=== PATIENT | female | born 1990 | race Caucasian/White ===

== ENCOUNTER 2016-10-02 18:51 | Emergency (ER) | payer MEDICAID, OTHER ==
[~2016-10-02] VITALS: Ht 165.1 cm; Wt 54.4 kg
[~2016-10-02 18:51] MED LIST: ACET-2267 PO; AMOX500C2 PO; CLIN300C3 PO; DIPH25TA82 PO; DOCU100C37 PO; FERR-74 PO; FRS325T PO; HYDR-1231 PO; HYDR-3714 PO; HYDR-3812 PO; HYDR-3820 PO; IBP600T1 PO; IBUP-1773 PO; MTH.2T PO; NAUSEA MED; ONDA8TAB13 PO; ONDN4T PO; OXYC-12 PO; PREN1TAB39 PO; PRENATAL VITAMINS PO; PRM25T PO; RT-ALBUINH IH; TRAM-42 PO; TRM50T PO; [UNRECOGNIZED DRUG - REMARK]; cough suppressant
--- NOTE | 2016-10-02 19:02 | ED EENT ---
History of Present Illness General Stated Complaint: DENTAL PAIN Source: patient Exam Limitations: no limitations History of Present Illness Time seen by provider: 19:00 Initial Comments To ER with left upper dental pain for the past week. No fevers or chills. No swelling. She has called the [facility] clinic and they will see her next week she states. Timing/Duration: abrupt Severity: moderate Location: mouth Associated Symptoms: No facial pain/swelling, No fever Allergies and Home Medications Allergies Coded Allergies: No Known Drug Allergies (Unverified , 10/07/10) Home Medications Acetaminophen 500 Mg Tablet 1,000 MG PO Q6H PRN PRN PAIN (Reported) Review of Systems Constitutional: see HPINo chills Eyes: No Symptoms Reported Ears: No Symptoms Reported Nose: no symptoms reported Mouth: see HPIdenies pain, denies swelling Throat: no symptoms reported Respiratory: no symptoms reported Cardiovascular: no symptoms reported Musculoskeletal: no symptoms reported Skin: no symptoms reported Neurological: No Symptoms Reported Past Gunatxj-Jhncgm-Pmfprq Hx Patient Social History Type Used: Cigarettes Recent Foreign Travel: No Contact w/Someone Who Travel: No Recent Hopitalizations: Yes (vag delivery in 2009) Immunizations Up To Date Tetanus Booster (TDap): Less than 5yrs PED Vaccines UTD: No Date of Influenza Vaccine: Jul 12, 2015 Seasonal Allergies Seasonal Allergies: Yes Surgeries HX Surgeries: Yes (D&C, bladder surgery) Surgeries: Bladder Surgery, Ear Surgery Respiratory Hx Respiratory Disorders: No Cardiovascular Hx Cardiac Disorders: No Neurological Hx Neurological Disorders: No Reproductive System Hx Reproductive Disorders: No (states recent cyst dx, 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) Sexually Transmitted Disease: No HIV/AIDS: No Female Reproductive Disorders: Denies Genitourinary Hx Genitourinary Disorders: Yes (BLADDER SURGERY CHILD) Gastrointestinal Hx Gastrointestinal Disorders: No Musculoskeletal Hx Musculoskeletal Disorders: No Endocrine Hx Endocrine Disorders: No HEENT HX ENT Disorders: Yes (BMT) Cancer Hx Cancer: No Psychosocial Hx Psychiatric Problems: No Integumentary HX Skin/Integumentary Disorder: No Blood Transfusions Hx Blood Disorders: Yes Adverse Reaction to a Blood Tr: No Family Medical History Significant Family History: Cancer, Diabetes, Hypertension Family Medial History: Patient reports no known family medical history. Physical Exam General Appearance: WD/WN no apparent distress Eyes: bilateral eye EOMI, bilateral eye PERRL, bilateral eye normal inspection Ears: bilateral ear TM normal, bilateral ear auricle normal, bilateral ear canal normal Mouth/Throat: pharynx normal other (whitish hairy coating to the tongue) Neck: non-tender full range of motion Respiratory: no respiratory distress no accessory muscle use Neurologic/Psychiatric: alert normal mood/affect oriented x 3 Skin: normal color warm/dry Departure Impression Impression: Primary Impression: Dental caries Additional Impression: Thrush Disposition: 01 HOME, SELF-CARE Condition: Stable Departure-Patient Inst. Decision time for Depature: 19:02 Referrals: [facility] (PCP/Family) Primary Care Physician Patient Instructions: Dental Pain, Thrush Add. Discharge Instructions: 1. See your doctor next week 2. Return to ER for any worsening 3. Scripts Ondansetron (Zofran Odt)4 Mg Tab.rapdis4 Mg PO Q4H PRN NAUSEA #10 TAB Prov:YOSELIN RAND APRN 10/02/16 Naproxen (Naprosyn)500 Mg Qexpux049 Mg PO BID PRN PAIN #30 TAB Prov:YOSELIN RAND APRN 10/02/16 Amoxicillin 500 Mg [id number] Mg PO TID #30 CAP Prov:YOSELIN RAND APRN 10/02/16 Fluconazole (Diflucan)150 Mg [id number] Mg PO DAILY #3 TAB Prov:YOSELIN RAND APRN 10/02/16 YOSELIN RAND APRN Oct 02, 2016 19:02
[2016-10-02] MEDS ORDERED: FLUC150T PO (19:04)
[2016-10-02] MEDS ORDERED: AMOX500C2 PO (19:04)
[2016-10-02] MEDS ORDERED: ONDA4TAB8 PO (19:04)
[2016-10-02] MEDS ORDERED: NAPR500T PO (19:04)
[2016-10-02 19:16] VITALS: BP 125/93
== END 2016-10-02 19:16 | disposition home or self-care (01) ==
LOC: EDUNIT# 18:51 → ER 18:52
DX: K02.9 Dental caries, unspecified (principal); B37.0 Candidal stomatitis
CPT/HCPCS: 99282

== ENCOUNTER 2017-05-01 21:19 | Emergency (ER) | payer SELFPAY ==
[~2017-05-01] VITALS: Ht 165.1 cm; Wt 54.5 kg
[~2017-05-01 21:19] MED LIST changes: +FLUC150T PO; +NAPR500T PO; +ONDA4TAB8 PO
--- OUTSIDE RECORDS SUMMARY | 2017-05-01 21:24 | XMS REPORT ---
Author Author ANNA MARINO eClinicalWorks Address Unknown Phone Unavailable Care Team Providers Care Detail Technician Name Role Phone ANNA MARINO CP Unavailable Allergies, Adverse Reactions, Alerts Substance Reaction Event Type N.K.D.A. Info Not Available Non Drug Allergy Problems Problem Type Condition Code Onset Dates Condition Status Problem Counseling on substance use and abuse V65.42 Active Problem Unspecified infective otitis externa 380.10 Active Problem Unspecified otitis media 382.9 Active Problem Intestinal infection due to other organism, NEC 008.8 Active Assessment Encounter for dental examination Z01.20 Active Medications Medication Code System Code Instructions Start Date End Date Status Dosage [facility] [address]-16 27-1 MG Orally not defined Procedures Procedure Coding System Code Date INTRAORL-PERIAPICAL 1 FILM 67566 CPT-4 D0220 May 27, 2015 INTRAORL-PERIAPICAL EA ADD FILM CPT-4 D0230 May 27, 2015 COMP ORAL EVALUATION - NEW/EST PT CPT-4 D0150 May 27, 2015 BITEWINGS - FOUR FILMS CPT-4 D0274 May 27, 2015 INTRAORL-PERIAPICAL EA ADD FILM CPT-4 D0230 May 27, 2015 Vital Signs Date/Time: May 27, 2015 Blood Pressure Diastolic 72 mmHg Blood Pressure Systolic 109 mmHg Cardiac Monitoring Heart Rate 84 bpm Results No Known Results Summary Purpose eClinicalWorks Submission
--- OUTSIDE RECORDS SUMMARY | 2017-05-01 21:25 | XMS REPORT ---
Author Author MOHAMUD VALENTIN [facility] eClinicalWorks Address Unknown Phone Unavailable Care Team Providers Care Boxing Inspector Name Role Phone MOHAMUD VALENTIN CP Unavailable Allergies No Known Allergies Problems Problem Type Condition Code Onset Dates Condition Status Problem Unspecified otitis media 382.9 Active Problem Counseling on substance use and abuse V65.42 Active Problem Severe episode of recurrent major depressive disorder, without psychotic features F33.2 Active Assessment Severe episode of recurrent major depressive disorder, without psychotic features F33.2 Active Problem Unspecified infective otitis externa 380.10 Active Problem Intestinal infection due to other organism, NEC 008.8 Active Medications No Known Medications Procedures Procedure Coding System Code Date Psych diagnostic evaluation, new patient CPT-4 73300 Jun 09, 2016 Results No Known Results Summary Purpose eClinicalWorks Submission
--- OUTSIDE RECORDS SUMMARY | 2017-05-01 21:25 | XMS REPORT ---
Author CODIE Brock [facility] [place] eClinicalWorks Address Unknown Phone Unavailable Care Team Providers Care Master Mechanic Name Role Phone CODIE BEASLEY CP Unavailable Allergies No Known Allergies Problems Problem Type Condition Code Onset Dates Condition Status Problem Counseling on substance use and abuse V65.42 Active Problem Unspecified infective otitis externa 380.10 Active Problem Unspecified otitis media 382.9 Active Problem Intestinal infection due to other organism, NEC 008.8 Active Medications No Known Medications Results No Known Results Summary Purpose eClinicalWorks Submission
--- OUTSIDE RECORDS SUMMARY | 2017-05-01 21:25 | XMS REPORT | Continuity of Care Document ---
Author Author [facility] Address Unknown Phone Unavailable Allergies Active Description Code Type Severity Reaction Onset Reported/Identified Relationship to Patient Clinical Status Yes No Known Drug Allergies [id number] Drug Allergy Unknown N/ A 10/07/2010 Medications Problems Date Dx Coded Attending Type Code Diagnosis Diagnosed By 04/29/2008 APURVA DUMONT APRN 486 PNEUMONIA UNSPECIFIED 04/29/2008 DONIS ESCOBAR APRN R 486 PNEUMONIA UNSPECIFIED 04/29/2008 KAMRAN CORBETTS, OPAL D 486 PNEUMONIA UNSPECIFIED 07/23/2008 APURVA DUMONT APRN 461.9 SINUSITIS ACUTE 07/23/2008 DONIS ESCOBAR APRN R 461.9 SINUSITIS ACUTE 07/23/2008 KAMRAN CORBETTS, OPAL D 461.9 SINUSITIS ACUTE 08/12/2008 APURVA DUMONT APRN 079.99 VIRAL SYNDROME 08/12/2008 DONIS ESCOBAR APRN R 079.99 VIRAL SYNDROME 08/12/2008 WHITE DDS, OPAL D 079.99 VIRAL SYNDROME 10/13/2008 APURVA DUMONT APRN 381.01 OTITIS MEDIA ACUTE SEROUS 10/13/2008 DONIS ESCOBAR APRN R 381.01 OTITIS MEDIA ACUTE SEROUS 10/13/2008 KAMRAN CORBETTS, OPAL D 381.01 OTITIS MEDIA ACUTE SEROUS 10/15/2008 APURVA DUMONT APRN V25.40 visit for: contraceptive surveillance 10/15/2008 APURVA DUMONT APRN V69.2 sexually active, frequently with new partners 10/15/2008 APURVA DUMONT APRN V72.31 Pelvic Exam (Internal) 10/15/2008 APURVA DUMONT APRN V74.5 visit for: screening exam bact/ spirochetal venereal disease 10/15/2008 DONIS ESCOBAR APRN R V25.40 visit for: contraceptive surveillance 10/15/2008 DONIS ESCOBAR APRN V69.2 sexually active, frequently with new partners 10/15/2008 DONIS ESCOBAR APRN R V72.31 Pelvic Exam (Internal) 10/15/2008 DONIS ESCOBAR APRN R V74.5 visit for: screening exam bact/ spirochetal venereal disease 10/15/2008 OPAL ANDREW DDS V25.40 visit for: contraceptive surveillance 10/15/2008 OPAL ANDREW DDS V69.2 sexually active, frequently with new partners 10/15/2008 OPAL ANDREW DDS V72.31 Pelvic Exam (Internal) 10/15/2008 OPAL ANDREW DDS V74.5 visit for: screening exam bact/ spirochetal venereal disease 10/16/2008 APURVA DUMONT APRN V25.49 SURVEILLANCE OF OTHER CONTRACEPTIVE METHOD 10/16/2008 DONIS ESCOBAR APRN R V25.49 SURVEILLANCE OF OTHER CONTRACEPTIVE METHOD 10/16/2008 OPAL ANDREW DDS V25.49 SURVEILLANCE OF OTHER CONTRACEPTIVE METHOD 10/25/2008 APURVA DUMONT APRN 112.1 CANDIDIASIS VAGINAL 10/25/2008 DONIS ESCOBAR APRN R 112.1 CANDIDIASIS VAGINAL 10/25/2008 OPAL ANDREW DDS 112.1 CANDIDIASIS VAGINAL 11/19/2008 APURVA DUMONT APRN 381.10 OTITIS MEDIA SIMPLE OR UNSPECIFIED 11/19/2008 DONIS ESCOBAR APRN R 381.10 OTITIS MEDIA SIMPLE OR UNSPECIFIED 11/19/2008 OPAL ANDREW DDS 381.10 OTITIS MEDIA SIMPLE OR UNSPECIFIED 12/16/2008 APURVA DUMONT APRN 599.0 URINARY TRACT INFECTION 12/16/2008 APURVA DUMONT APRN 788.1 pain during urination (dysuria) 12/16/2008 DONIS ESCOBAR APRN R 599.0 URINARY TRACT INFECTION 12/16/2008 EBONY ESCOBAR APRNINA R 788.1 pain during urination (dysuria) 12/16/2008 OPAL ANDREW DDS 599.0 URINARY TRACT INFECTION 12/16/2008 OPAL ANDREW DDS 788.1 pain during urination (dysuria) 04/05/2009 APURVA DUMONT APRN 787.01 NAUSEA WITH VOMITING 04/05/2009 APURVA DUMONT APRN V22.2 STATE INCIDENTAL 04/05/2009 DONIS ESCOBAR APRN R 787.01 NAUSEA WITH VOMITING 04/05/2009 DONIS ESCOBAR APRN R V22.2 STATE INCIDENTAL 04/05/2009 KAMRAN BRIZUELA, OPAL Pelaez 787.01 NAUSEA WITH VOMITING 04/05/2009 OPAL ANDREW DDS Latanya V22.2 STATE INCIDENTAL 11/16/2009 APURVA DUMONT APRN V65.11 NEW MOMMY VISIT 11/16/2009 DONIS ESCOBAR APRN V65.11 NEW MOMMY VISIT 11/16/2009 KAMRAN BRIZUELA OPAL Pelaez V65.11 NEW MOMMY VISIT 12/02/2009 Ot 285.9 12/02/2009 Ot 648.21 12/02/2009 Ot 649.01 12/02/2009 Ot 792.3 12/02/2009 Ot V06.1 12/02/2009 Ot V23.7 12/02/2009 Ot V27.0 09/10/2010 APURVA DUMONT APRN V72.42 TEST POSITIVE RESULT 09/10/2010 DONIS ESCOBAR APRN V72.42 TEST POSITIVE RESULT 09/10/2010 KAMRAN GELACIOOPAL V72.42 TEST POSITIVE RESULT 10/07/2010 Ot 623.8 10/07/2010 Ot 634.91 05/23/2011 Ot 625.9 05/23/2011 Ot 648.93 06/10/2011 Ot 625.8 06/10/2011 Ot 646.83 10/07/2011 Ot 285.1 10/07/2011 Ot 285.9 10/07/2011 Ot 648.21 10/07/2011 Ot 648.22 10/07/2011 Ot 664.01 10/07/2011 Ot V04.81 10/07/2011 Ot V27.0 11/03/2011 Ot 724.5 11/03/2011 Ot 784.0 11/06/2011 APURVA DUMONT APRN 380.10 INFECTIVE OTITIS EXTERNA UNSPECIFIED 11/06/2011 APURVA DUMONT APRN 382.9 UNSPECIFIED OTITIS MEDIA 11/06/2011 APURVA DUMONT APRN V65.42 COUNSELING - SMOKING CESSATION 11/06/2011 DONIS ESCOBAR APRN 380.10 INFECTIVE OTITIS EXTERNA UNSPECIFIED 11/06/2011 DONIS ESCOBAR APRN 382.9 UNSPECIFIED OTITIS MEDIA 11/06/2011 DONIS ESCOBAR APRN V65.42 COUNSELING - SMOKING CESSATION 11/06/2011 OPAL ANDREW DDS 380.10 INFECTIVE OTITIS EXTERNA UNSPECIFIED 11/06/2011 WHITE DDS, OPAL D 382.9 UNSPECIFIED OTITIS MEDIA 11/06/2011 WHITE DDS, OPAL Pelaez V65.42 COUNSELING - SMOKING CESSATION 02/23/2012 Ot 623.8 02/23/2012 Ot 626.8 07/05/2012 TIM ASSURANCE ASSISTANT, APURVA T 008.8 GASTROENTERITIS, VIRAL 07/05/2012 SHAWN ASSURANCE ASSISTANT, DONIS Casas 008.8 GASTROENTERITIS, VIRAL 07/05/2012 WHITE DDS, OPAL Pelaez 008.8 GASTROENTERITIS, VIRAL 10/07/2013 MORA DO, CLEMENTE C Ot 632 02/13/2014 SILVER ALTAMIRANO, TRACY Baxter Ot 640.03 02/23/2014 LEE CONWAY DO Ot 634.91 07/04/2014 YOSELIN RAND ASSURANCE ASSISTANT Ot V22.2 07/04/2014 YOSELIN RAND ASSURANCE ASSISTANT Ot V71.4 08/01/2014 MITZY SPENCE, MUSTAPHA Pelaez Ot 634.91 02/14/2015 PAUL SPENCE, CURTIS Calabrese Ot 623.8 02/14/2015 PAUL SPENCE, CURTIS Calabrese Ot 640.93 08/03/2015 MORA DO, CLEMENTE C Ot D62 08/03/2015 MORA DO, CLEMENTE C Ot M94.0 08/03/2015 MORA DO, CLEMENTE C Ot O09.293 08/03/2015 MORA DO, CLEMENTE C Ot O60.14X0 08/03/2015 MORA DO, CLEMENTE C Ot O69.81X0 08/03/2015 MORA DO, CLEMENTE C Ot O72.0 08/03/2015 MORA DO, CLEMENTE C Ot O90.81 08/03/2015 MORA DO, CLEMENTE C Ot O99.334 08/03/2015 MORA DO, CLEMENTE C Ot O99.89 08/03/2015 MORA DO, CLEMENTE C Ot Z23 08/03/2015 MORA DO, CLEMENTE C Ot Z37.0 08/03/2015 MORA DO, CLEMENTE C Ot Z3A.37 03/20/2016 AVI SPENCE, KRISTEN Mann Ot K02.9 DENTAL CARIES, UNSPECIFIED 03/20/2016 AVI SPENCE, KRISTEN Mann Ot K08.8 OTHER SPECIFIED DISORDERS OF TEETH AND S 03/20/2016 AVI SPENCE, RKISTEN Mann Ot R11.0 NAUSEA 03/22/2016 AVI SPENCE, KRISTEN Mann Ot K02.9 DENTAL CARIES, UNSPECIFIED 03/22/2016 AVI SPENCE, KRISTEN Mann Ot K08.8 OTHER SPECIFIED DISORDERS OF TEETH AND S 03/22/2016 AVI SPENCE, KRISTEN Mann Ot R11.0 NAUSEA 07/06/2016 YOSELIN RAND APRN Ot K02.9 DENTAL CARIES, UNSPECIFIED 07/06/2016 YOSELIN RAND APRN Ot K08.9 DISORDER OF TEETH AND SUPPORTING STRUCTU 07/07/2016 YOSELIN RAND APRN Ot K02.9 DENTAL CARIES, UNSPECIFIED 07/07/2016 YOSELIN RAND APRN Ot K08.9 DISORDER OF TEETH AND SUPPORTING STRUCTU 10/02/2016 YOSELIN RAND APRN Ot B37.0 CANDIDAL STOMATITIS 10/02/2016 YOSELIN RAND APRN Ot K02.9 DENTAL CARIES, UNSPECIFIED 10/02/2016 YOSELIN RAND APRN Ot K08.9 DISORDER OF TEETH AND SUPPORTING STRUCTU 10/03/2016 YOSELIN RAND APRN Ot B37.0 CANDIDAL STOMATITIS 10/03/2016 YOSELIN RAND APRN Ot K02.9 DENTAL CARIES, UNSPECIFIED 10/03/2016 YOSELIN RAND APRN Ot K08.9 DISORDER OF TEETH AND SUPPORTING STRUCTU Procedures Results Encounters ACCT No. Visit Date/Time Discharge Status Pt. Type Provider Facility Loc./Unit Complaint [id number] 11/20/2013 09:02:00 11/20/2013 23: 59:59 CLS Outpatient OPAL ANDREW DDS [id number] 11/06/2013 08:55:00 11/06/2013 23: 59:59 CLS Outpatient DONIS ESCOBAR APRN [id number] 07/05/2012 11:56:00 07/05/2012 23: 59:59 CLS Outpatient APURVA DUMONT APRN [id number] 10/02/2016 18:52:00 2016 19:16:00 DIS Emergency YOSELIN RAND APRN [facility] ER DENTAL PAIN [id number] 07/06/2016 21:45:00 2015 22:29:00 DIS Emergency YOSELIN RAND ASSURANCE ASSISTANT [facility] ER DENTAL PAIN [id number] 03/20/2016 18:41:00 2015 19:30:00 DIS Emergency AVI SPENCE, KRISTEN Mann [facility] ER DENTAL PAIN [id number] 08/01/2015 07:40:00 2014 13:45:00 DIS Inpatient CLEMENTE MORA DO [facility] [id number] 02/14/2015 08:17:00 2014 10:15:00 DIS Emergency PAUL SPENCE, CURTIS Calabrese [facility] ER [id number] 08/01/2014 14:50:00 2013 17:50:00 DIS Emergency MITZY SPENCE, MUSTAPHA Pelaez [facility] ER [id number] 07/04/2014 21:15:00 2013 22:50:00 DIS Emergency YOSELIN RAND APRN [facility] ER [id number] 02/23/2014 06:46:00 2013 08:37:00 DIS Emergency LEE CONWAY DO [facility] ER [id number] 02/13/2014 17:24:00 2013 23:59:59 CLS Emergency TRACY NEWMAN [facility] ER [id number] 10/07/2013 07:55:00 2013 12:30:00 DIS Outpatient CLEMENTE MORA DO Via [facility] [id number] 02/23/2012 00:38:00 Document Registration [id number] 11/03/2011 20:17:00 Document Registration [id number] 10/06/2011 07:32:00 Document Registration [id number] 06/10/2011 14:45:00 Document Registration [id number] 05/23/2011 17:51:00 Document Registration [id number] 10/07/2010 17:21:00 Document Registration [id number] 11/30/2009 08:23:00 Document Registration
--- OUTSIDE RECORDS SUMMARY | 2017-05-01 21:25 | XMS REPORT ---
Author Author AURELIANO DIOR [facility] eClinicalWorks Address Unknown Phone Unavailable Care Team Providers Care Tube Balancer Name Role Phone AURELIANO DIOR CP Unavailable Allergies, Adverse Reactions, Alerts Substance [...]
--- OUTSIDE RECORDS SUMMARY | 2017-05-01 21:25 | XMS REPORT ---
Author Author APURVA DUMONT Organization eClinicalWorks Address Unknown Phone Unavailable Care Team Providers Care Clinical Trials Manager Name Role Phone APURVA DUMONT CP Unavailable Allergies No Known Allergies Problems Problem Type Condition Code Onset Dates Condition Status Problem Counseling on substance use and abuse V65.42 Active Problem Unspecified infective otitis externa 380.10 Active Problem Unspecified otitis media 382.9 Active Problem Intestinal infection due to other organism, NEC 008.8 Active Medications Medication Code System Code Instructions Start Date End Date Status Dosage Promethazine HCl [facility] [address]-94 25 MG Orally every 6 hrs, PRN May 10, 2016 May 20, 2016 1 tablet as needed Results No Known Results Summary Purpose eClinicalWorks Submission
[2017-05-01] MEDS ORDERED: LIDOCAINE 2% VISCOUS 15 ML UDC ONE (21:44)
[2017-05-01] MEDS ORDERED: AMOX500C2 PO (21:45)
--- NOTE | 2017-05-01 21:45 | ED EENT ---
History of Present Illness General Chief Complaint: Dental Problems/Pain Stated Complaint: TOOTH PAIN Source: patient Exam Limitations: no limitations History of Present Illness Time seen by provider: 21:42 Initial Comments To ER with left upper dental pain for "a long time". She states that she has seen [facility] in the past and they stated that they didn't have time to remove her teeth but they didn't need pulled. She denies any swelling. This is her fourth presentation to the emergency room with this story of left upper dental pain unable to be taken care of at [facility]. She states she is scheduled to see [facility] again next week to have these 2 teeth removed. Severity: moderate Location: dental Associated Symptoms: denies symptoms Allergies and Home Medications Allergies Coded Allergies: No Known Drug Allergies (Unverified , 10/07/10) Home Medications Acetaminophen 500 Mg Tablet, 1,000 MG PO Q6H PRN for PAIN, (Reported) Amoxicillin 500 Mg Capsule, 500 MG PO TID, #30 Prescribed by: YOSELIN RAND on 10/02/161903 Fluconazole 150 Mg Tablet, 150 MG PO DAILY, #3 Prescribed by: YOSELIN RAND on 10/02/161903 Naproxen 500 Mg Tablet, 500 MG PO BID PRN for PAIN, #30 Prescribed by: YOSELIN RAND on 10/02/161903 Ondansetron 4 Mg Tab.rapdis, 4 MG PO Q4H PRN for NAUSEA, #10 Prescribed by: YOSELIN RAND on 10/02/161903 Review of Systems Constitutional: see HPI Eyes: No Symptoms Reported Ears: No Symptoms Reported Nose: no symptoms reported Mouth: see HPI Throat: no symptoms reported Respiratory: no symptoms reported Cardiovascular: no symptoms reported Musculoskeletal: no symptoms reported Past Fzihffd-Ktuhim-Ubrorf Hx Patient Social History Alcohol Use: Occasionally Uses Recreational Drug Use: No Smoking Status: Current Everyday Smoker Type Used: Cigarettes 2nd Hand Smoke Exposure: Yes Recent Foreign Travel: No Contact w/Someone Who Travel: No Recent Hopitalizations: No Physical Abuse: No Sexual Abuse: No Immunizations Up To Date Tetanus Booster (TDap): Less than 5yrs PED Vaccines UTD: No Date of Influenza Vaccine: Jul 12, 2015 Seasonal Allergies Seasonal Allergies: Yes Surgeries History of Surgeries: Yes (D&C, bladder surgery) Surgeries: Bladder Surgery, Ear Surgery Respiratory History of Respiratory Disorde: No Cardiovascular History of Cardiac Disorders: No Neurological History of Neurological Disord: No Reproductive System Hx Reproductive Disorders: No (states recent cyst dx, 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) Sexually Transmitted Disease: No HIV/AIDS: No Female Reproductive Disorders: Denies Genitourinary History of Genitourinary Disor: No Gastrointestinal History of Gastrointestinal Di: No Musculoskeletal History of Musculoskeletal Dis: No Endocrine History of Endocrine Disorders: No HEENT History of HEENT Disorders: No Cancer History of Cancer: No Psychosocial History of Psychiatric Problem: No Suicide Risk Score: 0 Integumentary History of Skin or Integumenta: No Blood Transfusions History of Blood Disorders: No Adverse Reaction to a Blood Tr: No Family Medical History Significant Family History: Cancer, Diabetes, Hypertension Family Medial History: Patient reports no known family medical history. Physical Exam General Appearance: WD/WN, no apparent distress Eyes: bilateral eye normal inspection, bilateral eye PERRL (I felt hot with what), bilateral eye EOMI Ears: bilateral ear auricle normal, bilateral ear canal normal, bilateral ear TM normal Mouth/Throat: dental tenderness, other (multiple dental caries, no fluctuance to suggest abscess. ) Respiratory: no respiratory distress, no accessory muscle use Gastrointestinal: normal bowel sounds, non tender Neurologic/Psychiatric: alert, normal mood/affect, oriented x 3 Skin: normal color, warm/dry Departure Impression Impression: Primary Impression: Dental caries Disposition: 01 HOME, SELF-CARE Condition: Stable Departure-Patient Inst. Decision time for Depature: 21:44 Referrals: [facility] (PCP/Family) Primary Care Physician Patient Instructions: Dental Pain (DC) Add. Discharge Instructions: 1. Medication as directed 2. Follow-up with [facility] next week as scheduled All discharge instructions reviewed with patient and/or family. Voiced understanding. Scripts Amoxicillin (Amoxicillin) 500 Mg Capsule 500 MG PO TID, #21 CAP Prov: YOSELIN RAND SOCIETY EDITOR 05/01/17 YOSELIN RAND SOCIETY EDITOR May 01, 2017 21:45
[2017-05-01 21:59] VITALS: BP 115/73
[2017-05-02] MEDS ORDERED: LIDOCAINE 2% VISCOUS 15 ML UDC PO SCH (06:00)
== END 2017-05-01 21:59 | disposition home or self-care (01) ==
LOC: EDUNIT# 21:19 → ER 21:21
DX: K02.9 Dental caries, unspecified (principal); F17.210 Nicotine dependence, cigarettes, uncomplicated; Z86.19 Personal history of other infectious and parasitic diseases; Z80.9 Family history of malignant neoplasm, unspecified
CPT/HCPCS: 99282

== ENCOUNTER → 2017-10-29 | Outpatient (CLI) | payer MEDICAID ==
[~2017-10-29] MED LIST changes: +ACHD5005 PO; -FERR-74 PO; +FERR325T18 PO; -HYDR-3812 PO; +NAPR-1071 PO; -NAPR500T PO
--- NOTE | 2017-10-29 10:59 | Diagnostic Imaging Report ---
INDICATION: survey. TECHNIQUE: Multiple real-time grayscale images were obtained over the gravid uterus. COMPARISON: None. FINDINGS: There is a single live fetus in a cephalic presentation. The placenta is posterior. No previa is identified. The tip of the placenta is located approximately 2.8 cm from the internal cervical os. The amniotic fluid volume is normal. heart rate was recorded at 135 beats per minute. survey demonstrates kidneys, bladder and stomach to be unremarkable. There is a four-chamber heart. Intracranial structures are unremarkable. There is a three-vessel cord with normal cord insertion. The spine is grossly unremarkable. Biometrical measurements are as follows: Biparietal 4.72 cm, age 20 weeks 2 days. Head circumference 17.72 cm, age 20 weeks 2 days. Abdominal circumference 14.94 cm, age 20 weeks 2 days. Femur length 3.4 cm, age 20 weeks 5 days. Sonographic estimate age: 20 weeks 3 days. Sonographic estimated date of delivery: 03/15/18. Estimated Weight: 350 gm (+/- 51 gm). LMP percentile: 59%. heart rate: 135 beats per minute. number: 1 of 1. IMPRESSION: Single live IUP approximately 20 weeks 3 days gestational age sonographically. Estimated date of confinement sonographically is 03/15/2018. Dictated by: Dictated on workstation # [id number]
== END ==
LOC: RAD 09:45
PROVIDERS: ATTEND Obstetrics & Gynecology
DX: Z36.89 Encounter for other specified antenatal screening (principal); Z3A.20 20 weeks gestation of pregnancy
CPT/HCPCS: 76805

== ENCOUNTER 2017-12-26 10:31 | Outpatient (CLI) | payer MEDICAID ==
[~2017-12-26] VITALS: Ht 165.1 cm; Wt 65.3 kg
[2017-12-26 10:50] VITALS: BP 112/62
[2017-12-26 11:15] LABS: BILIRUBIN,URINE NEGATIVE (NEGATIVE); CLARITY,URINE SLIGHTLY CLOUDY; COLOR,URINE YELLOW; GLUCOSE, URINE (UA) NEGATIVE (NEGATIVE); KETONES,URINE NEGATIVE (NEGATIVE); LEUKOCYTE ESTERASE ,URINE NEGATIVE (NEGATIVE); NITRITE,URINE NEGATIVE (NEGATIVE); PH,URINE 8 (5-9); PROTEIN,URINE NEGATIVE (NEGATIVE); UROBILINOGEN,URINE NORMAL (NORMAL)
[2017-12-26 11:22] LABS: AMORPHOUS SEDIMENT,UR RARE AMOR PHOSPHATE /LPF; BACTERIA,URINE FEW /HPF; WBC,URINE RARE /HPF
[2017-12-26] MEDS ORDERED: NITR-65 PO (12:22)
--- NOTE | 2017-12-27 12:14 | Physician Query-Final Dx ---
JIMENA AARON 12/27/17 1214: Clinic Account Progress/Dx Physician Query: Please give diagnosis Date of Service December 26, 2017 at 10:31 DARIEL COLORADO MD 12/28/17 0743: Clinic Account Progress/Dx DIAGNOSIS: Diagnosis false labor JIMENA AARON December 27, 2017 12:14 DARIEL COLORADO MD December 28, 2017 07:43
== END 2017-12-26 12:30 | disposition home or self-care (01) ==
LOC: LDRP 10:31 → WSo 10:31
PROVIDERS: ATTEND Obstetrics & Gynecology
DX: O47.03 False labor before 37 completed weeks of gestation, third trimester (principal); Z3A.28 28 weeks gestation of pregnancy
CPT/HCPCS: 81000; 87088; 99213

== ENCOUNTER 2019-04-03 21:41 | Emergency (ER) | payer SELFPAY ==
[~2019-04-03] VITALS: Ht 165.1 cm; Wt 59.0 kg
[~2019-04-03 21:41] MED LIST changes: +IBUP-844 PO; +NITR-65 PO
[2019-04-03] MEDS ORDERED: AMOX500C2 PO (22:11)
--- NOTE | 2019-04-03 22:11 | ED EENT ---
History of Present Illness General Chief Complaint: Dental Problems/Pain Stated Complaint: DENTAL PAIN Nursing Triage Note: pt verbalized x1 week dental pain. left upper. states now odor, facial swelling, tired. Source: patient Exam Limitations: no limitations History of Present Illness Date Seen by Provider: Apr 03, 2019 Time Seen by Provider: 21:58 Initial Comments This 28-year-old young lady presents to the emergency room with complaints of facial pain and swelling she believes is caused by a dental decay. Pain first started in the upper right bowel about a week ago. Now the left upper mouth is sore and she has swelling over the left maxilla. She does not feel well but denies fever. She reports there is odor associated with the swelling. She feels fatigued. She is afebrile at present. She did contact her dentist who instructed her she would need to be seen by a physician to be started on antibiotics before she can be seen for possible extractions. Allergies and Home Medications Allergies Coded Allergies: No Known Drug Allergies (Unverified , 10/07/10) Home Medications Acetaminophen 500 Mg Tablet, 1,000 MG PO Q6H PRN for PAIN Prescribed by: CLEMENTE MORA on 03/07/18244 Amoxicillin 500 Mg Capsule, 1,000 MG PO BID Prescribed by: KRISTEN PATEL on 04/03/192210 Ferrous Sulfate 325 Mg Tablet, 325 MG PO DAILY Prescribed by: CLEMENTE MORA on 03/07/18244 Ibuprofen 600 Mg Tablet, 600 MG PO Q6H Prescribed by: CLEMENTE MORA on 03/07/18244 Patient Home Medication List Home Medication List Reviewed: Yes Review of Systems Review of Systems Constitutional: see HPI Eyes: No Symptoms Reported Ears: No Symptoms Reported Nose: no symptoms reported Mouth: see HPI Throat: no symptoms reported Respiratory: no symptoms reported Cardiovascular: no symptoms reported Gastrointestinal: no symptoms reported : No Musculoskeletal: no symptoms reported Skin: no symptoms reported Neurological: No Symptoms Reported Hematologic/Lymphatic: No Symptoms Reported Past Pzibhmj-Zrzmfj-Mglumo Hx Past Med/Social Hx: Reviewed and Corrections made Patient Social History Type Used: Cigarettes 2nd Hand Smoke Exposure: Yes Recent Foreign Travel: No Contact w/Someone Who Travel: No Recent Infectious Disease Expo: No Recent Hopitalizations: No Immunizations Up To Date Tetanus Booster (TDap): Less than 5yrs PED Vaccines UTD: Yes Date of Influenza Vaccine: Jul 12, 2015 Seasonal Allergies Seasonal Allergies: Yes (summer) Past Medical History Surgeries: Yes Bladder Surgery, Ear Surgery, Tubal Ligation Respiratory: No Cardiac: No Neurological: No Reproductive Disorders: No (states recent cyst dx, 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 0.0oz. 58.175583oe; 24.5 BMI Method:Stated General Appearance: WD/WN, no apparent distress Eyes: bilateral eye normal inspection, bilateral eye PERRL, bilateral eye EOMI Ears: bilateral ear auricle normal, bilateral ear canal normal, bilateral ear TM normal Nose: normal inspection Mouth/Throat: pharynx normal, other (very poor dentition with extensive dental decay. Mild inflammation with no overt abscess. Tenderness superior to the left canine area. 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 Departure Impression Primary Impression: Dental abscess Additional Impression: Dental decay Disposition: 01 HOME, SELF-CARE Condition: Improved Departure-Patient Inst. Decision time for Depature: 22:07 Referrals: [facility]/ (PCP/Family) Primary Care Physician Patient Instructions: Tooth Decay, Adult (DC), Tooth Abscess (DC) Add. Discharge Instructions: For primary pain control you may take ibuprofen up to 600 mg every 6 hours as needed. You may add Tylenol (acetaminophen) up to 1000 mg every 6 hours as needed for additional pain relief. Gently brush your teeth at least twice daily with a soft bristle toothbrush. You may also rinse with an antiseptic mouthwash such as Listerine if tolerated. Follow-up with a dentist as soon as possible for further evaluation and possible dental extractions. Complete your antibiotic as prescribed. For sinus pressure you may choose to use an gulp-xfx-hgqvfhj decongestant. Be careful to evaluate active ingredients of combination medications to ensure you are not overdosing on any particular component. All discharge instructions reviewed with patient and/or family. Voiced understanding. Scripts Amoxicillin (Amoxicillin) 500 Mg Capsule 1000 MG PO BID, #40 CAP 0 Refills Prov: KRISTEN CÁRDENAS MD 04/03/19 KRISTEN CÁRDENAS MD Apr 03, 2019 22:11
[2019-04-03] MEDS: AMOXICILLIN 500 MG (POLYMOX) CAP PO STA (22:15)
[2019-04-03 22:17] VITALS: BP 129/88
== END 2019-04-03 22:18 | disposition home or self-care (01) ==
LOC: EDUNIT# 21:41 → ER 21:42
DX: K04.7 Periapical abscess without sinus (principal); K02.9 Dental caries, unspecified; D64.9 Anemia, unspecified; Z77.22 Contact with and (suspected) exposure to environmental tobacco smoke (acute) (chronic); Z98.51 Tubal ligation status; Z82.49 Family history of ischemic heart disease and other diseases of the circulatory system
CPT/HCPCS: 99283

== ENCOUNTER 2019-08-31 11:14 | Emergency (ER) | payer SELFPAY ==
[~2019-08-31] VITALS: Ht 165 cm; Wt 59.0 kg
--- NOTE | 2019-08-31 11:28 | ED EENT ---
History of Present Illness General Chief Complaint: Dental Problems/Pain Stated Complaint: DENTAL PAIN Nursing Triage Note: c/o L upper dental pain and facial swelling Source: patient Exam Limitations: no limitations History of Present Illness Date Seen by Provider: Aug 31, 2019 Time Seen by Provider: 11:28 Initial Comments Pain and swelling to the left maxillary region 2 days. Timing/Duration: gradual Severity: moderate Location: facial Associated Symptoms: facial pain/swelling Allergies and Home Medications Allergies Coded Allergies: No Known Drug Allergies (Unverified , 10/07/10) Home Medications Acetaminophen 500 Mg Tablet, 1,000 MG PO Q6H PRN for PAIN Prescribed by: CLEMENTE MORA on 03/07/18244 Amoxicillin 500 Mg Capsule, 1,000 MG PO BID Prescribed by: KRISTEN PATEL on 04/03/19 2211 Clindamycin HCl 300 Mg Capsule, 300 MG PO TID Prescribed by: YOSELIN RAND on 08/31/19 1246 Ferrous Sulfate 325 Mg Tablet, 325 MG PO DAILY Prescribed by: CLEMENTE MORA on 03/07/18244 Hydrocodone/Acetaminophen 1 Each Tablet, 1 TAB PO Q4-6HR do not fill unless clindamycin is also filled. Prescribed by: YOSELIN RAND on 08/31/19 1247 Ibuprofen 600 Mg Tablet, 600 MG PO Q6H Prescribed by: CLEMENTE MORA on 03/07/18244 Patient Home Medication List Home Medication List Reviewed: Yes Review of Systems Review of Systems Constitutional: see HPI Eyes: No Symptoms Reported Ears: No Symptoms Reported Nose: no symptoms reported Mouth: see HPI Throat: no symptoms reported Respiratory: no symptoms reported Cardiovascular: no symptoms reported Gastrointestinal: no symptoms reported Past Djpuzlg-Ogwlge-Tibjhi Hx Patient Social History Alcohol Use: Denies Use Recreational Drug Use: No Smoking Status: Current Everyday Smoker Type Used: Cigarettes 2nd Hand Smoke Exposure: Yes Recent Foreign Travel: No Contact w/Someone Who Travel: No Recent Infectious Disease Expo: No Recent Hopitalizations: No Immunizations Up To Date Tetanus Booster (TDap): Less than 5yrs PED Vaccines UTD: Yes Date of Influenza Vaccine: Jul 12, 2015 Seasonal Allergies Seasonal Allergies: Yes (summer) Past Medical History Surgeries: Yes Bladder Surgery, Ear Surgery, Tubal Ligation Respiratory: No Cardiac: No Neurological: No Reproductive Disorders: No (states recent cyst dx, 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 0.0oz. 58.369851ik; 21.00 BMI Method:Stated General Appearance: WD/WN, no apparent distress Eyes: bilateral eye normal inspection, bilateral eye PERRL, bilateral eye EOMI Ears: bilateral ear auricle normal, bilateral ear canal normal, bilateral ear TM normal Mouth/Throat: maxillary swelling (left sided), other (multiple teeth in poor state of health with caries, fractures and gingivitis. Tooth #11 to be the source of this as it is eroded carious and tender but there is no palpable fluctuant abscess) Neck: non-tender, full range of motion; No lymphadenopathy (R), No lymphadenopathy (L) Cardiovascular: regular rate, rhythm, no murmur Respiratory: no respiratory distress, no accessory muscle use Neurologic/Psychiatric: alert, normal mood/affect, oriented x 3 Skin: normal color, warm/dry Progress/Results/Core Measures Results/Orders Lab Results Laboratory Tests Test 08/31/19 11:40 Range/Units White Blood Count 8.6 4.3-11.0 10^3/uL Red Blood Count 4.46 4.35-5.85 10^6/uL Hemoglobin 12.1 11.5-16.0 G/DL Hematocrit 37 35-52 % Mean Corpuscular Volume 83 80-99 FL Mean Corpuscular Hemoglobin 27 25-34 PG Mean Corpuscular Hemoglobin Concent 33 32-36 G/DL Red Cell Distribution Width 16.3 H 10.0-14.5 % Platelet Count 336 130-400 10^3/uL Mean Platelet Volume 9.6 7.4-10.4 FL Neutrophils (%) (Auto) 69 42-75 % Lymphocytes (%) (Auto) 22 12-44 % Monocytes (%) (Auto) 8 0-12 % Eosinophils (%) (Auto) 2 0-10 % Basophils (%) (Auto) 0 0-10 % Neutrophils # (Auto) 5.9 1.8-7.8 X 10^3 Lymphocytes # (Auto) 1.9 1.0-4.0 X 10^3 Monocytes # (Auto) 0.7 0.0-1.0 X 10^3 Eosinophils # (Auto) 0.1 0.0-0.3 10^3/uL Basophils # (Auto) 0.0 0.0-0.1 10^3/uL C-Reactive Protein High Sensitivity 3.04 H 0.00-0.50 MG/DL Serum Test, Qualitative NEGATIVE NEGATIVE My Orders Orders - YOSELIN RAND APRN Cbc With Automated Diff (08/31/19 11:22) Hs C Reactive Protein (08/31/19 11:22) Hcg,Qualitative Serum (08/31/19 11:22) Ed Iv/Invasive Line Start (08/31/19 11:22) Clindamycin 900 Mg/50 Ml Ivpb (Cleocin P (08/31/19 11:30) Ketorolac Injection (Toradol Injection) (08/31/19 11:30) Ct Maxillofacial W (08/31/19 11:22) Urine Bedside (08/31/19 11:34) Iohexol Injection (Omnipaque 350 Mg/Ml 1 (08/31/19 12:15) Received Contrast (Hold Metformin- Contr (08/31/19 12:15) Ns (Ivpb) (Sodium Chloride 0.9% Ivpb Bag (08/31/19 12:15) Medications Given in ED Current Medications Medications Dose Ordered Sig/Alfred Route Start Time Stop Time Status Last Admin Dose Admin Clindamycin Phosphate/Dextrose 50 ml @ 100 mls/hr ONCE ONCE IV 08/31/19 11:30 08/31/19 11:59 DC 08/31/19 11:44 100 MLS/HR Iohexol 75 ml ONCE ONCE IV 08/31/19 12:15 08/31/19 12:16 DC 08/31/19 12:59 75 ML Ketorolac Tromethamine 15 mg ONCE ONCE IVP 08/31/19 11:30 08/31/19 11:31 DC 08/31/19 11:44 15 MG Sodium Chloride 100 ml ONCE ONCE IV 08/31/19 12:15 08/31/19 12:16 DC 08/31/19 12:59 80 ML Vital Signs/I&O 08/31/19 11:24 Temp 37.3 Pulse 97 Resp 18 B/P (MAP) 120/81 (94) Pulse Ox 97 Blood Pressure Mean: 94 Diagnostic Imaging Diagonstic Imaging: CT Comments NAME: KRIS POWELL [facility] REC#: [id number] PT STATUS: REG ER : 1990 PHYSICIAN: YOSELIN RAND PHYSICIAN GYNECOLOGIST ADMIT DATE: 08/31/19/ER Draft Date of Exam:08/31/19 CT MAXILLOFACIAL W PROCEDURE: CT maxillofacial with contrast. TECHNIQUE: After intravenous administration of contrast, axial images were obtained through the face and reformatted into coronal and sagittal planes. Auto Exposure Controls were utilized during the CT exam to meet ALARA standards for radiation dose reduction. INDICATION: Left upper dental pain and facial swelling. COMPARISON: None FINDINGS: The pterygoid plates are intact. The mandible is intact and normal in alignment. The zygomatic arches are intact. No acute facial fracture is seen. There is marked mucosal thickening in the left maxillary sinus, extending into the ethmoid sinuses. There is a periapical lucency of the left maxillary second molar, and likely the source of the left maxillary sinusitis. There is moderate edema of the subcutaneous fat of the left cheek. No soft tissue fluid collection is seen. IMPRESSION: 1. Left maxillary sinusitis, which appears to be odontogenic from a left maxillary second molar abscess. There is overlying superficial soft tissue edema without fluid collection seen. Dictated on workstation # [id number] Dict: 08/31/19 1225 Trans: 08/31/19 1231 [facility] [id number] Interpreted by: HANSA RUIZ MD Electronically signed by: Departure Impression Primary Impression: Odonogenic maxillary sinusitis Additional Impressions: Odontogenic infection of jaw left molar abscess Disposition: HOME, SELF-CARE Condition: Stable Departure-Patient Inst. Decision time for Depature: 12:44 Referrals: [facility] (PCP/Family) Primary Care Physician Patient Instructions: Tooth Abscess (DC) Add. Discharge Instructions: 1. Return to ER for any concerns 2. Antibiotics as directed 3. Follow-up with a dentist as soon as possible. If you do not have a dentist then go to [facility] dental clinic on [address] [place] All discharge instructions reviewed with patient and/or family. Voiced understanding. Scripts Ondansetron (Ondansetron Odt) 8 Mg Tab.rapdis 8 MG PO Q6H PRN for NAUSEA/VOMITING, #10 TAB Prov: YOSELIN RAND APRN 08/31/19 Hydrocodone/Acetaminophen (Ovalo 5-325 Tablet) 1 Each Tablet 1 TAB PO Q4-6HR for Pain MDD 10 TABS for 7 Days, #10 TAB do not fill unless clindamycin is also filled. Prov: YOSELIN RAND APRN 08/31/19 Clindamycin HCl (Clindamycin HCl) 300 Mg Capsule 300 MG PO TID, #21 CAP Prov: YOSELIN RAND APRN 08/31/19 YOSELIN RAND APRN Aug 31, 2019 11:28
[2019-08-31] MEDS ORDERED: KETOROLAC 30 MG/ML VIAL IVP ONE (11:30)
[2019-08-31] MEDS ORDERED: CLINDAMYCIN 900 MG/50 ML IVPB 50 ML IV ONE (11:30)
[2019-08-31 11:49] LABS: BASOPHILS % (AUTO) 0 % (0-10); EOSINOPHILS # (AUTO) 0.1 10^3/uL (0.0-0.3); EOSINOPHILS % (AUTO) 2 % (0-10); HEMATOCRIT 37 % (35-52); HEMOGLOBIN 12.1 G/DL (11.5-16.0); LYMPHOCYTES # (AUTO) 1.9 X 10^3 (1.0-4.0); LYMPHOCYTES % (AUTO) 22 % (12-44); MEAN CORPUSCULAR HEMOGLOBIN 27 PG (25-34); MEAN CORPUSCULAR HGB CONC 33 G/DL (32-36); MEAN CORPUSCULAR VOLUME 83 FL (80-99); MEAN PLATELET VOLUME 9.6 FL (7.4-10.4); MONOCYTES # (AUTO) 0.7 X 10^3 (0.0-1.0); MONOCYTES % (AUTO) 8 % (0-12); NEUTROPHILS # (AUTO) 5.9 X 10^3 (1.8-7.8); NEUTROPHILS % (AUTO) 69 % (42-75); PLATELET COUNT 336 10^3/uL (130-400); RED CELL DISTRIBUTION WIDTH 16.3 % (10.0-14.5); WHITE BLOOD COUNT 8.6 10^3/uL (4.3-11.0)
[2019-08-31] MEDS ORDERED: HOLD METFORMIN - RECEIVED CONTRAST 20 ML VIAL IV SCH (12:15)
[2019-08-31] MEDS ORDERED: IOHEXOL 350 MG/ML 100 ML (OMNIPAQUE 350) VIAL IV ONE (12:15)
[2019-08-31] MEDS ORDERED: NS 100 ML (IVPB) BAG IV ONE (12:15)
--- NOTE | 2019-08-31 12:32 | Diagnostic Imaging Report ---
PROCEDURE: CT maxillofacial with contrast. TECHNIQUE: After intravenous administration of contrast, axial images were obtained through the face and reformatted into coronal and sagittal planes. Auto Exposure Controls were utilized during the CT exam to meet ALARA standards for radiation dose reduction. INDICATION: Left upper dental pain and facial swelling. COMPARISON: None FINDINGS: The pterygoid plates are intact. The mandible is intact and normal in alignment. The zygomatic arches are intact. No acute facial fracture is seen. There is marked mucosal thickening in the left maxillary sinus, extending into the ethmoid sinuses. There is a periapical lucency of the left maxillary second molar, and likely the source of the left maxillary sinusitis. There is moderate edema of the subcutaneous fat of the left cheek. No soft tissue fluid collection is seen. IMPRESSION: 1. Left maxillary sinusitis, which appears to be odontogenic from a left maxillary second molar abscess. There is overlying superficial soft tissue edema without fluid collection seen. Dictated by: Dictated on workstation # [id number]
[2019-08-31] MEDS ORDERED: CLIN300C11 PO (12:46)
[2019-08-31] MEDS ORDERED: HYDR-4226 PO (12:47)
[2019-08-31 13:03] VITALS: BP 120/81
[2019-08-31] MEDS ORDERED: ONDA8TAB13 PO (13:03)
== END 2019-08-31 13:03 | disposition home or self-care (01) ==
LOC: EDUNIT# 11:14 → ER 11:15
DX: J32.0 Chronic maxillary sinusitis (principal); M27.2 Inflammatory conditions of jaws; K04.7 Periapical abscess without sinus; D64.9 Anemia, unspecified; F17.210 Nicotine dependence, cigarettes, uncomplicated; Z98.51 Tubal ligation status; Z82.49 Family history of ischemic heart disease and other diseases of the circulatory system
CPT/HCPCS: 36415; 70487; 84703; 85025; 86141

== ENCOUNTER 2019-12-30 08:15 | Emergency (ER) | payer SELFPAY ==
[~2019-12-30] VITALS: Ht 165 cm; Wt 65.1 kg
[~2019-12-30 08:15] MED LIST changes: +ACHYD1T PO; +CLIN300C11 PO; -HYDR-3820 PO; +HYDR-4226 PO
--- OUTSIDE RECORDS SUMMARY | 2019-12-30 08:40 | XMS REPORT ---
Author Author Stephon Alaniz A Organization [facility] Address [address] [place] [address] Care Team Providers Care Filter Bed Placer Name Role Phone DONIS Alaniz Unavailable PROBLEMS Type Condition ICD9-CM Code ALU73-ND Code Onset Dates Condition S tatus SNOMED Code Problem Intestinal infection due to other organism, NEC 008.8 Active 03008704 Problem Severe episode of recurrent major depressive disorder, without psychotic features F33.2 Active 33997119 Problem Counseling on substance use and abuse V65.42 Active 972005526 Problem Unspecified otitis media 382.9 Activ e 14484122 Problem Unspecified infective otitis externa 380.10 Active 60351202 ALLERGIES No Information ENCOUNTERS Encounter Location Date Diagnosis [facility] [address] [id number] [place] [address] 30 Mar, 2019 Screen for STD (sexually transmitted dis ease) Z11.3 [facility] [address] [place] [id number] [address] [place] [id number] 15 Mar, 2019 [facility] [place] [id number] [address] [place] [id number] 14 Mar, 2019 Screen for STD (sexually tra nsmitted disease) Z11.3 ; Other specified bacterial agents as the cause of diseases classified elsewhere B96.89 ; Acute vaginitis N76.0 and Trichomonal infection A59.9 [facility] [address] [facility] [place] [id number] 12 Feb, 2018 Dental examination Z01.20 and Dental car ies K02.9 [facility] [address] [facility] [id number] [address] [place] [id number] 18 Nov, 2017 Cellulitis of right foot L03 .115 and Bronchitis J40 [facility] [address] [id number] Jan, Dental examination Z01.20 [facility] [address] [address] Jun, [facility] [address] [address] Jun, Severe episode of recurrent major depres sive disorder, without psychotic features F33.2 [facility] [address] [facility] [id number] [place] [address] May, [facility] [address] [address] May, Dental examination Z01.20 [facility] [address] [id number] Mar, Dental examination Z01.20 and Dental car ies K02.9 [facility] [address] [address] Nov, [facility] [address] [id number] May, Encounter for dental examination Z01.20 [facility] [address] [address] 14 Nov, 2014 [facility] [address] [address] Nov, [facility] [address] [id number] Nov, [facility] [address] [address] Nov, [facility] [address] [address] Nov, [facility] [address] [address] Nov, [facility] [address] [address] Jun, [facility] [address] [id number] [place] [address] Jun, [facility] [address] [facility] [place] [address] Jun, [facility] [address] [id number] [place] [address] Jun, [facility] [id number] [place] [address] Nov, [facility] [id number] [place] [address] Nov, [facility] [id number] [place] [address] December, [facility] [id number] [place] [address] Nov, [facility] [address] [id number] [place] [address] Oct, [facility] [id number] [place] [address] Oct, IMMUNIZATIONS No Known Immunizations SOCIAL HISTORY Never Assessed REASON FOR VISIT PLAN OF CARE VITAL SIGNS Height 64 in 2013-11-06 Weight 133.25 lbs 2013-11-06 Temperature 97.5 degrees Fahrenheit 2013-11-06 Heart Rate 80 bpm 2013-11-06 Respiratory Rate 18 2013-11-06 MEDICATIONS Unknown Medications RESULTS No Results PROCEDURES No Known procedures INSTRUCTIONS MEDICATIONS ADMINISTERED No Known Medications MEDICAL (GENERAL) HISTORY Type Description Date Medical History anemia Medical History chronic ear infections Surgical History myringotomy with ventilating tube x4 as child Surgical History bladder surgery for incontinence as chil d Surgical History dilatation and curettage s/p miscarriage () 10/2013 Hospitalization History child
--- OUTSIDE RECORDS SUMMARY | 2019-12-30 08:40 | XMS REPORT ---
Author Author CoPatient communications advisor [facility] [employer] Address [address] [address] Care Team Providers Care Food Expeditor Name Role Phone NO, LOCAL PHYSICIAN Unavailable Unavailable APURVA DUMONT Unavailable Unavailable MOHAMUD VALENTIN Unavailable Unavailable AURELIANO DIOR Unavailable Unavailable [facility] Unavailable ANNA MARINO Unavailable Unavailable CODIE BEASLEY Unavailable Unavailable CLEMENTE MORA Unavailable CLEMENTE MORA Unavailable [facility] Unavailable MORGAN CLEMENTE C Unavailable GREGORY CROWE Unavailable YOSELIN RAND APRN Unavailable Unavailable LEE CONWAY DO Unavailable Unavailable Migration, Doctor Unavailable Unavailable APURVA DUMONT Unavailable [facility] PCP [phone] PCP, OUTSIDE Unavailable Unavailable AVI SPENCE, KRISTEN Mann Unavailable Unavailable MUSTAPHA FORRESTER MD Unavailable Unavailable YOSELIN RAND APRN Unavailable Unavailable [facility] PCP DONIS Alaniz Unavailable Unavailable Unavailable Unavailable Unavailable Unavailable Unavailable Unavailable Unavailable Allergies Normalized Allergy Reported Date of Reaction(s) Care Provider Facility Allergy Type classification allergen Allergy Onset DA (9 Unclassified No Known Drug 10-07-2010 - no information LEE CONWAY DO Not Available sources.) Allergies (99412) no information Unclassified NO KNOWN DRUG NO KNOWN DRUG [facility] (3 sources.) ALLERGIES ALLERGIES [address] ([address]) Medications Current Medications Medication Ingredient Drug Dose Dates Status Sig Sig Care Class(es) (Normalized) (Original) Provid er no A/B Otic no 1 11-06-19 Active no A/B Otic n o information 5.4-1.4 % information drop(s 12 information 5.4-1 .4 % name (1 source.) ) instill into affected ear(s) by otic route every 1-2 hours as needed enough drops to fill ear canal Nov, Active amoxicillin Amoxicillin Penicillin- 11-06-19 Active take 1 Augme ntin no 875 mg / / class 12 tablet by 875-125 mg 1 name clavulanate Clavulanate Antibacteri mouth twice tablet by 125 mg oral Translation al daily Oral route 2 tablet (1 s: [ times per source.) Augmentin day for 10 875-125 mg] day(s) Nov, Active no Ciprofloxac Corticoster 3 11-06-19 Active no Cip rodex no information in / oid, drop(s 12 information 0.3-0.1 % 3 name (1 source.) Dexamethaso Quinolone ) drop by Otic ne Antimicrobi route 2 al times per day for 7 day(s) Nov, Active Completed/Discontinued Medications Medication Ingredient Drug Dose Dates Status Sig Sig Care Class(es) (Normalized) (Original) Provid er no Cough no 07-06-20 Complete no Cough no information Suppressant information 16 d information Shay ppressant name (1 source.) Discontinued NOT APPLICABLE July 06, 2016 no Hydrocodone no 02-14-20 Complete no Hydrocodone n o information Bit/Acetami information 14 - d information Bi t/Acetamin name (1 source.) cryshen 07-04-20 ophen 14 Discontinued 1 ORAL Every 4HRS as needed for Pain February 13, 2014 7:44pm July 04, 2014 no Nausea Med no 10-06-19 Complete no Nausea Med no information information 12 d information Disconti nued name (1 source.) NOT APPLICABLE October 06, 2011 no Nausea Pill no 07-06-20 Complete no Nausea Pill n o information information 16 d information Disconti nued name (1 source.) NOT APPLICABLE July 06, 2016 nitrofurant NITROFURANT Nitrofuran 25 mg 12-27-19 Complete no Nitrofuranto no oin, OIN, Antibacteri 18 - d information in name macrocrysta MACROCRYSTA al 03-06-20 Monohyd/M-Cr ls 25 mg / LS / 18 yst nitrofurant Nitrofurant Discontinued oin, oin, 1 ORAL Twice monohydrate Monohydrate A Day 10 December 75 mg oral 2017 capsule (2 12:22pm sources.) March 06, 2018 no no 07-06-20 Complete no no information Vitamins information 16 d information Vitam ins name (1 source.) Discontinued 1 ORAL Daily July 06, 2016 no no 10-06-19 Complete no no information Vits information 12 d information Vits name (1 source.) W-Ca,Fe,Fa( W-Ca,Fe,Fa( <1MG) Discontinued 1 ORAL October 06, 2011 no no 10-06-19 Complete no (no information Vits information 12 d information Vits phone) (2 W-Ca,Fe,Fa( W-Ca,Fe,Fa( sources.) <1MG) Discontinued () 1 Each Tablet, 1 Each Oral NEGATED no no 04-30-20 no no no no no information information 18 - informat information infor mation name information 04-30-20 ion (1 source.) 18 NEGATED no no 1 g 04-30-20 no no no no no information information 18 - informat information infor mation name information 04-30-20 ion (1 source.) 18 NEGATED no no 04-30-20 no no no no no information information 18 - informat information infor mation name information 04-30-20 ion (1 source.) 18 NEGATED no no 04-30-20 no no no no no information information 18 - informat information infor mation name information 05-07-20 ion (1 source.) 18 Problems Active Problems Problem Normalized Date Last Normalized Normalized Provider Fa cility Classification Problem(s) Recorded Problem Problem Sta tus Duration Inflammatory Acute Episodic Active DONIS Community diseases of vaginitis [facility] female pelvic Translations: [address] of [place] organs (1 [ - Acute [place] ([address]) source.) vaginitis N76.0] NEGATED Anemia of Chronic Active CORNEL NUVIA Not Avai lable no mother, MD (94207) information (1 delivered, source.) with or without mention of antepartum condition Other Anemia of the Chronic Active CLEMENTE MORA , Not Available complications puerperium DO (09695) of ; puerperium affecting management of mother (1 source.) Deficiency and Anemia, Episodic Active [facility] Via other anemia unspecified Liv CÁRDENAS (6 sources.) [facility] ([address]11) Abdominal Bilateral Episodic Active [facility] hernia (6 inguinal [facility] #1 of sources.) hernia, Transfer without County ([address]) obstruction or gangrene, not specified as recurrent Translations: [ BILATERAL INGUINAL HERNIA, WITHOUT MENTION OF OBSTRUCTION OR GANGRENE (NOT SPECIFIED RECURRENT)] Residual Contact with Episodic Active [facility] Via codes; and Liv CÁRDENAS unclassified (suspected) [facility] - (6 sources.) exposure to [place] environmental (33165) tobacco smoke (acute) (chronic) NEGATED Encounter for Episodic Active no name [facility] Via no full-term Liv information (6 uncomplicated Hospital - sources.) delivery [place] Translations: (93840) [ SINGLE LIVE , DELIVER-SINGLE LIVEBORN, PREG STATE, INCIDENTAL] Contraceptive Encounter for Episodic Active [facility] spital and sterilization [facility] #1 o f procreative Translations: Transfer management (10 [ ENCOUNTER County ([address]) sources.) FOR STERILIZATION, TUBAL LIGATION STATUS] Residual Family history Episodic Active [facility] Via codes; of ischemic Liv CÁRDENAS unclassified heart disease [facility] - (6 sources.) and other [place] diseases of (67258) the circulatory system Other ear and Infective Episodic Active Doctor Communit y sense organ otitis externa [facility] r disorders (2 Translations: of [facility] sources.) [ Unspecified [place] (80729) infective otitis externa] Other ear and Infective Chronic Active DONIS Communit y sense organ [facility] (1 Translations: [address] of [facility] source.) [ Unspecified [place] (96760) infective otitis externa] Immunizations Need for Episodic Active DONIS Community and screening prophylactic [facility] for infectious vaccination [address]305 of [facility] disease (4 and [place] (36393) sources.) inoculation against diphtheria-tet anus-pertussis , combined [DTP] [DTaP] Translations: [ ENCOUNTER FOR IMMUNIZATION, - Screen for STD (sexually transmitted disease) Z11.3] Substance-rela Nicotine Chronic Active YOSELIN RAND Not Av ailable colin disorders dependence, (07554) (2 sources.) cigarettes, uncomplicated Menstrual Other Chronic Active LEE MARTINO , DO Not Avai lable disorders (1 disorders of (08018) source.) menstruation and other abnormal bleeding from female genital tract Bacterial Other Episodic Active DONIS Community infection; specified [facility] unspecified bacterial [address] [place] [address] site (1 agents as the [place] ([address]) source.) cause of diseases classified elsewhere Translations: [ - Other specified bacterial agents as the cause of diseases classified elsewhere B96.89] Unclassified Patient no information Active COMM[facility]ITY [facility] Via (1 source.) encounter [facility] status [address] [place] [address] ([address]) Unclassified Spontaneous no information Active COMMUNITY As cension Via (1 source.) onset of labor CENTER/[address] ([address]) Other Trichomoniasis Episodic Active DONIS Communi ty infections; , unspecified [facility] including Translations: [address] [place] [address] parasitic (1 [ - [place] ([address]17) source.) Trichomonal infection A59.9] Past or Other Problems Problem Normalized Date Last Normalized Normalized Provider Bennie hazel Classification Problem(s) Recorded Problem Problem Sta tus Duration NEGATED 20 weeks no information no information no name Not Available no gestation of (95858) information (5 sources.) Translations: [ 28 WEEKS GESTATION OF , 37 WEEKS GESTATION OF ] NEGATED 38 weeks no information no information no name H Via no gestation of [facility] information (3 Hospital - sources.) [place] ([address]) Acute Acute Episodic Completed CLEMENTE MORA , Not Avail able posthemorrhagi posthemorrhagi DO (77695) c anemia (1 c anemia source.) NEGATED Anemia, Episodic Completed CORNEL PEDERSEN Not Avail able no unspecified , (04091) information (1 source.) Other bone Chondrocostal Episodic Completed CLEMENTE MORA , Not Available disease and junction DO (11243) musculoskeleta syndrome l deformities [Tietze] (1 source.) Disorders of Dental caries, Episodic Completed YOSELIN RAND No t Available teeth and jaw unspecified (33232) (3 sources.) Translations: [ OTHER SPECIFIED DISORDERS OF TEETH AND S] Unclassified Encounter for no information no information no nam e Not Available (1 source.) other (41412) specified screening NEGATED False labor Episodic Completed no name no informa tion no before 37 information (4 completed sources.) weeks of gestation, third trimester Translations: [ LABOR THIRD TRI W DELIVE] Umbilical cord Labor and Episodic Completed CLEMENTE MORA , Not Available complication delivery DO (77598) (1 source.) complicated by cord around neck, without compression, not applicable or unspecified NEGATED Nonspecific Episodic Completed CORNEL PEDERSEN Not Av ailable no abnormal MD (74856) information (1 findings in source.) amniotic fluid NEGATED Observation Episodic Completed YOSELIN RAND Not Avai lable no following (27433) information (1 other accident source.) Other Other Episodic Completed CLEMENTE MORA , Not Avail able complications specified DO (88233) of diseases and (1 source.) conditions complicating , childbirth and the puerperium Unclassified Other no information no information no name no information (1 source.) specified disorders of teeth and supporting structures Other female Other Episodic Completed LEE MAN , DO Not A vailable genital specified (38926) disorders (2 noninflammator sources.) y disorders of vagina Other Personal Episodic Completed YOSELIN RAND Not Availab le infections (2 history of (19176) sources.) other infectious and parasitic diseases Other Smoking Episodic Completed CLEMENTE MORA , Not Avail able complications (tobacco) DO (92383) of ; complicating puerperium childbirth affecting management of mother (1 source.) NEGATED Supervision of Episodic Completed CORNEL PEDERSEN Not Available no high-risk MD (64448) information (1 with source.) insufficient care Other Supervision of Episodic Completed CLEMENTE MORA , Not Available complications with DO (57583) of other poor (1 source.) reproductive or obstetric history, third trimester Other Third-stage Episodic Completed CLEMENTE MORA , Not Av ailable complications hemorrhage DO (17450) of ; puerperium affecting management of mother (1 source.) NEGATED Tobacco use Episodic Completed CORNEL PEDERSEN Not Av ailable no disorder MD (57962) information (1 complicating source.) , childbirth, or the puerperium, delivered, with or without mention of antepartum condition Procedures Procedure Normalized Procedure Procedure Result Performer Facility Date 08-31-2019 CT of maxillofacial no information no name Asc ension Via [facility] area with [facility] ([address]) NEGATED DELIVERY OF PRODUCTS no information no name VC H Via [facility] OF CONCEPTION, [facility] (42160) NEGATED Episiotomy no information no name Not Availab le (51314) EXTRACTION OF PRODUCTS no information no name Not Kristen ilable (01663) OF CONCEPTION, RE Substance abuse no information no name [facility] (63822) Immunizations The data below is from unstructured sources Immunization Event Date Not Given Reason Dose Number [employer] Data [employer]st Lot Number Vaccine Information Statement (VIS) Deta il No Known Immunizations Results Test Name Value Interpretation Reference Range Date Time Fa cility (Normalized) (Normalized) (Medline Reference) not yet categorized on 2019-03-19 BLO tr-lysed (no code) [facility] (00408) Exp date Positive (no code) [facility] (05698) Exp date 11/2019 (no code) [facility] (75442) KET 04/2019~clear~ye (no code) [facility] llow~none~negati [facility] tive (84968) ANA LILIA Negative (no code) [facility] (74734) Lot # [id number] (no code) [facility] (11429) Lot # [id number] (no code) [facility] (42514) SG 1.015 (no code) [facility] (00016) URO 0.2 (no code) [facility] (51779) laboratory on 2019-03-19 pH (Bld) 7.0 [pH] (no code) 7.38 - 7.42 [pH] [facility] (24869) Protein (U) Negative (no code) 0 - 20 mg/dL [facility] [Mass/Vol] [facility] (62790) other on 2018-04-30 CULTURE SOURCE cath (no code) 04-30-2018 no informat ion 09:37-0400 FINAL CULTURE No Growth 48 (no code) 04-30-2018 no informat ion RESULTS hours 09:37-0400 HCG.beta subunit Negative (no code) 04-30-2018 no inform ation ( test) 08:18-0400 Ql MEDIA PLATED Setup at 13:46 (no code) 04-30-2018 no informa tion on 04/30/2018 09:37-0400 PRELIM CULTURE No Growth 24 (no code) 04-30-2018 no informa tion RESULTS hours 09:37-0400 hematology on 2018-04-30 INR Coag RelTime 1.0 {INR} (no code) 0.9 - 1.1 {INR} 04-30-2018 no information (PPP) 08:18-0400 Prothrombin time 11.3 (no code) 04-30-2018 no inform ation (PT) Coag time 08:18-0400 (PPP) other on 2018-04-26 FINAL CULTURE Negative (no code) 04-26-2018 Hospital RESULTS 13:47-0400 [facility] (05501) MEDIA PLATED Setup at 14:00 (no code) 04-26-2018 Hospital on 04/26/2018 13:47-0400 [facility] (17382) metabolic panel on 2018-04-26 Anion gap 3 14 mmol/L (no code) 3 - 11 mmol/L 04-26-2018 Hospit al molar conc 13:47-0400 [facility] (46456) Calcium mass 9.5 mg/dL (no code) 8.5 - 10.2 mg/dL 04-26-2018 Ho spital conc 13:47-0400 [facility] (05804) Chloride molar 106 mmol/L (no code) 95 - 106 mmol/L 04-26-2018 Hospital conc 13:47-0400 [facility] (82404) CO2 molar conc 24 mmol/L (no code) 23 - 29 mmol/L 04-26-2018 Ho spital 13:47-0400 [facility] (50285) Creatinine mass 0.76 mg/dL (no code) 04-26-2018 Hospital conc 13: [facility] (36692) GFR/1.73 sq M 91 (no code) 90 - 120 04-26-2018 Hospital predicted among mL/min/{1.73_m2} mL/min/{1.73_m2} 13: [facility] of non-blacks MDRD [facility] vol rate/area () (S/P/Bld) Glucose mass 85 mg/dL (no code) 60 - 125 mg/dL 04-26-2018 Hosp ital conc 13: [facility] () Osmolality 287 mosm/kg (no code) 275 - 295 04-26-2018 Hospital mosm/kg 13: [facility] (68247) Potassium molar 4.4 mmol/L (no code) 3.7 - 5.2 mmol/L 04-26-2018 Hospital conc 13: [facility] (13965) Sodium molar 140 mmol/L (no code) 135 - 145 mmol/L 04-26-2018 H ospital conc 13: [facility] () Urea nitrogen 8 mg/dL (no code) 7 - 20 mg/dL 04-26-2018 Hospi brayden mass conc 13:47 [facility] (67670) hematology on 2018-04-26 Basophils Auto 0.0 10*3/uL (no code) 0 - 0.3 10*3/uL 04-26-2018 Hospital #/vol (Bld) 13:470 [facility] (05670) Basophils/100 0.40 % (no code) 0.5 - 1 % 04-26-2018 Hospital WBC Auto (Bld) 13: [facility] (76200) Eosinophils Auto 0.2 10*3/uL (no code) 0.05 - 0.5 04-26-2018 Ho spital #/vol (Bld) 10*3/uL 13: [facility] (34353) Eosinophils/100 2.2 % (no code) 1 - 4 % 04-26-2018 Hospit al WBC Auto (Bld) 13:47 [facility] (06233) Erythrocyte 17.5 % (H) 11.6 - 14.6 % 04-26-2018 Hospit al distribution 13:47 [facility] width Auto Ratio [facility] (RBC) (25006) Hematocrit Auto 37.1 % (no code) 36.1 - 50.3 % 04-26-2018 Ho spital Volume Fraction 13:47 [facility] (Bld) [facility] (11143) Hemoglobin mass 11.9 g/dL (L) 12.1 - 17.2 g/dL 04-26-2018 Hospital conc (Bld) 13:47 [facility] (91746) Lymphocytes Auto 2.80 10*3/uL (no code) 0.9 - 2.9 04-26-2018 Ho spital #/vol (Bld) 10*3/uL 13:47 [facility] (76033) Lymphocytes/100 38.4 % (no code) 20 - 40 % 04-26-2018 Hospit al WBC Auto (Bld) 13:47 [facility] (75737) MCH Auto Entitic 25.9 pg (L) 27 - 31 pg 04-26-2018 Hosp ital mass (RBC) 13:47 [facility] (90723) MCHC Auto mass 32.1 g/dL (no code) 32 - 36 g/dL 04-26-2018 Hosp ital conc (RBC) 13:47 [facility] (66553) MCV Auto Entitic 80.7 fL (no code) 80 - 100 fL 04-26-2018 Hos pital volume (RBC) 13:47 [facility] (02576) Monocytes Auto 0.5 10*3/uL (no code) 0.3 - 0.9 04-26-2018 Hospi brayden #/vol (Bld) 10*3/uL 13:47 [facility] (18417) Monocytes/100 6.2 % (no code) 2 - 8 % 04-26-2018 Hospital WBC Auto (Bld) 13:47-0400 [facility] (50499) Neutrophils Auto 3.85 10*3/uL (no code) 1.7 - 7 10*3/uL 04-26-20 18 Hospital #/vol (Bld) 13:47-0400 [facility] (29248) Neutrophils/100 52.8 % (no code) 40 - 60 % 04-26-2018 Hospit al WBC Auto (Bld) 13:47-0400 [facility] (42161) Platelet mean 8.8 fL (no code) 7.2 - 11.7 fL 04-26-2018 Hosp ital volume Auto 13:47-0400 [facility] Entitic volume [facility] ([facility]) (66728) Platelets Auto 415 10*3/uL (H) 150 - 450 04-26-2018 Hospi brayden #/vol (d) 10*3/uL 13:47-0400 [facility] (47937) RBC Auto #/vol 4.60 10*6/uL (no code) 4.2 - 6.1 04-26-2018 Hosp ital (Bld) 10*6/uL 13:470400 [facility] (75079) WBC Auto #/vol 7.29 10*3/uL (no code) 3.5 - 10.5 04-26-2018 Hos pital (Bld) 10*3/uL 13:470400 [facility] (59669) venous blood hemoglobin measurement (mass/volume) on 2018-03-07 Hemoglobin (HGB) 10.0 g/dL (L) 12.1 - 17.2 g/dL Via [facility] (75678) blood neutrophils automated count (number/volume) on 2018-03-07 Neutrophils 5.7 10*3/uL (no code) 1.7 - 7 10*3/uL Via [facility] (43285) blood monocytes/100 leukocytes on 2018-03-07 Monocytes/100 7 % (no code) 2 - 8 % Via [facility] (51468) blood monocytes automated count (number/volume) on 2018-03-07 Monocytes 0.7 10*3/uL (no code) 0.3 - 0.9 Via [facility] 10*3/uL [facility] (95667) blood lymphocytes automated count (number/volume) on 2018-03-07 Lymphocytes 3.1 10*3/uL (no code) 0.9 - 2.9 Via [facility] 10*3/uL [facility] (57426) blood leukocytes automated count (number/volume) on 2018-03-07 WBC (Leukocytes) 9.6 10*3/uL (no code) 3.5 - 10.5 Via [facility] 10*3/uL [facility] (03165) blood hematocrit (volume fraction) on 2018-03-07 Hematocrit (HCT) 31 % (L) 36.1 - 50.3 % Via [facility] (22575) blood erythrocytes automated count (number/volume) on 2018-03-07 Erythrocytes 3.95 10*6/uL (L) 4.2 - 6.1 Via [facility] (RBC) 10*6/[facility] (37025) automated erythrocyte mean corpuscular volume on 2018-03-07 MCV 78 fL (L) 80 - 100 fL Via [facility] (71412) automated erythrocyte mean corpuscular hemoglobin concentration measurement (mass/volume) on 2018-03-07 MCHC 32 g/dL (no code) 32 - 36 g/dL Via [facility] (40373) automated erythrocyte mean corpuscular hemoglobin (mass per erythrocyte) on 2018-03-07 MCH 25 pg (no code) 27 - 31 pg Via [facility] (04402) automated erythrocyte distribution width ratio on 2018-03-07 RDW-CA 14.3 % (no code) 11.6 - 14.6 % Via [facility] (15315) automated eosinophil count on 2018-03-07 Eosinophils 0.2 10*3/uL (no code) 0.05 - 0.5 Via [facility] 10*3/[facility] (03946) automated blood platelet mean volume measurement on 2018-03-07 Platelet mean 10.4 fL (no code) 7.2 - 11.7 fL Via [facility] (PMV) [facility] (55485) automated blood platelet count (count/volume) on 2018-03-07 Platelets 343 10*3/uL (no code) 150 - 450 Via [facility] 10*3/uL [facility] (29876) automated blood neutrophils/100 leukocytes on 2018-03-07 Neutrophils/100 59 % (no code) 40 - 60 % Via [facility] leukocytes [facility] (74954) automated blood lymphocytes/100 leukocytes on 2018-03-07 Lymphocytes/100 32 % (no code) 20 - 40 % Via [facility] (47621) automated blood eosinophils/100 leukocytes on 2018-03-07 Eosinophils/100 2 % (no code) 1 - 4 % Via [facility] (01633) automated blood basophils/100 leukocytes on 2018-03-07 Basophils/100 0 % (no code) 0.5 - 1 % Via [facility] (84312) automated blood basophil count (count/volume) on 2018-03-07 Basophils 0.0 10*3/uL (no code) 0 - 0.3 10*3/uL Via [facility] (42834) urine urobilinogen measurement by automated test strip (mass/volume) on 2018-03-06 Urine, 1 (no code) Via [facility] urobilinogen [facility] (76123) urine total bilirubin detection by test strip on 2018-03-06 Urine, bilirubin Negative (no code) Via [facility] (97318) urine protein assay by test strip, semi-quantitativ e on 2018-03-06 Urine, protein 2+ (*) Via [facility] (53166) urine ph measurement by test strip on 2018-03-06 Urine, pH 6 [pH] (no code) 4.6 - 8 [pH] Via [facility] ([id number]) urine nitrite detection by test strip on 2018-03-06 Urine, nitrite Negative (no code) Via [facility] ([id number]) urine ketones detection by automated test strip on 2018-03-06 Urine, ketones Negative (no code) Via [facility] ([id number]) urine glucose detection by automated test strip on 2018-03-06 Urine, glucose Negative (no code) Via [facility] ([id number]) urine color determination on 2018-03-06 Urine, color JOSH (*) Via [facility] ([id number]) urine clarity determination on 2018-03-06 Urine, clarity CLEAR (no code) Via [facility] ([id number]) squamous epithelial cells detection in urine sediment by light microscopy on 2018-03-06 Urine, squamous no information (*) Via [facility] cells presence [facility] in [facility] ([id number]) specific gravity of urine by test strip on 2018-03-06 Urine, specific 1.020 (no code) Via [facility] gravity [facility] ([id number]) mucus detection in urine sediment by light microscopy on 2018-03-06 Urine, mucus Negative (no code) Via [facility] presence in [facility] ([id number]) leukocyte esterase on 2018-03-06 Urine, leukocyte 1+ (*) Via [facility] esterase [facility] ([id number]) erythrocytes detection in urine sediment by light microscopy on 2018-03-06 Urine, 1+ (*) Via [facility] erythrocytes [facility] ([id number]) crystals detection in urine sediment by light microscopy on 2018-03-06 Urine, crystals NONE (no code) Via [facility] presence in [facility] sediment [facility] ([id number]) complete urinalysis with reflex to culture on 2018-03-06 Complete NO (no code) Via [facility] urinalysis with Hospital reflex to [place] culture ([id number]) casts detection in urine sediment by light microscopy on 2018-03-06 Urine, casts in NONE (no code) Via [facility] sediment [facility] ([id number]) bacteria detection in urine sediment by light microscopy on 2018-03-06 Urine, bacteria TRACE (no code) Via [facility] in sediment [facility] ([id number]) automated urine sediment leukocyte count by microscopy (number/high power field) on 2018-03-06 Urine, RARE (no code) Via [facility] leukocytes [id number] automated urine sediment erythrocyte count by microscopy (number/high power field) on 2018-03-06 Urine, no information (no code) Via [facility] erythrocytes in Hospital sediment by [facility] ([id number]) Vital Signs Vital Sign Value Interpretation Reference Date Time Care Prov ider Facility (Normalized) (Normalized) [place] Body height 162.56 cm (no code) cm 11-06-2013 [facility] Co [facility]munity 10:55-0400 [facility] [id number] [place] [address] ([id number]) Body 97.5 [degF] (no code) 97.8 - 99.0 11-06-2013 DON[facility] Community temperature [degF] 10:55-0400 [facility] [id number] [place] [address] ([id number]) Body weight 60.44 kg (no code) kg 11-06-2013 DONIS Com munity 10:55-0400 [facility] [id number] [place] [address] ([id number]) Interventions No Information Plan of Treatment Normalized Care Care Detail Care Activity Date Care Provider F acility Activity Patient Education Tooth Abscess (DC) no information [facility] Via [address] [place] [address] ([id number]) Patient referral no information no information [facility] [address] [place] [address] ([id number]) Goals Patient Goal Desired Goal no information no information Social History Normalized Code Original Code Date Value Tobacco smoking status Tobacco smoking status no information Smokes tobacco daily NHIS NHIS (finding) no information no information 08-01-2015 Denies Use no information no information 08-01-2015 No no information no information 08-31-2019 Denies no information no information 08-31-2019 Current Everyda y Smoker no information no information 08-31-2019 Cigarettes Sex Assigned At Sex Assigned At no information F emale Functional Status The data below is from unstructured sources Query Response Date Bull rded Patient Orientation Eyes Open Normal For Age August 03, 2015 2:20pm Mental Status The data below is from unstructured sourcesNo Mental Status Information Available Encounters Encounter Normalized Encounter Encounter Diagnosis Care Provi dayami Organization Date Type 03-19-2019 [facility] Encounter for BASHIR BLOOM (no [facility] CARE screening for phone) CARE (no phone) 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 08-31-2019 Emergency department no information (no phone) [facility] - patient visit Hospital (no phone) 08-31-2019 08-31-2019 Emergency department no information no name no organization name - patient visit 08-31-2019 04-03-2019 Emergency department no information KRISTEN CAPUTO no organization name - patient visit Work Phone: 04-03-2019 04-03-2019 Emergency department no information no name no organization name - patient visit 04-03-2019 [facility] Emergency department no information no name no organization name 07-06-2016 patient visit - 07-06-2016 02-14-2015 Emergency department no information no name no organization name - patient visit 02-14-2015 NEGATED Emergency department no information no name no organization name 07-04-2014 patient visit - 07-04-2014 02-23-2012 Emergency department no information no name no organization name - patient visit 02-23-2012 03-05-2018 Evaluation and no information CLEMENTE MORA Work n o organization name - management of Phone: 03-07-2018 inpatient [facility]GATED Evaluation and no information no name no organ ization name 11-30-2009 management of - inpatient 12-02-2009 04-30-2018 Patient encounter no information no name no or ganization name - 04-30-2018 04-26-2018 Patient encounter no information no name no or ganization name - 04-27-2018 03-05-2018 Patient encounter no information no name no or ganization name [facility] Patient encounter no information no name no or ganization name 02-14-2018 11-21-2017 Patient encounter no information no name no or ganization name 10-29-2017 Patient encounter no information no name no or ganization name 10-21-2017 Patient encounter no information no name no or ganization name 04-03-2019 Patient encounter no information no name no or ganization name procedure 03-19-2019 Patient encounter no information no name no or ganization name procedure 03-19-2019 Patient encounter no information no name no or ganization name procedure 05-01-2017 Patient encounter no information no name no or ganization name procedure 10-02-2016 Patient encounter no information no name no or ganization name procedure 04-04-2019 Telephone encounter Encounter for BASHIR BERNOT (no [facility] screening for phone) (no phone) 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 03-20-2019 Telephone encounter no information BASHIR BERNOT (n o [facility] phone) CARE (no phone) no information Encounter for dental no name no organi zation name examination and cleaning without abnormal findings Medical Equipment The data below is from unstructured sourcesNo Medical Equipment Information available Payers Normalized Payer Value Private Health Insurance no information Evaluation note Note Type Note Facility Evaluation No Assessments Information Available A scension note [facility] ([id number]) History general Narrative - Reported Note Type Note Facility History general Narrative - Reported Type Medical anemia History Medical chronic ear infections History Surgical myringotomy with ventilatin g tube x4 as child History Surgical bladder surgery for inconti nence as child History Surgical dilatation and curettage s/p miscarriag e () 10/2013 History Hospitaliz child ation History [facility] ([id number]) Advance Directives Directive Response Recor ded Date/Time Advance Directives No 7:00pm Health Care Power of Gum Scoring Machine Operator No 03/20/16 7:00pm Organ Donor Yes 03/20/16 7:00pm Resuscitation Status Full Code 03/20/16 7:00pm Directive Response Recor ded Date/Time Advance Directives No 9:53pm Health Care Power of Gum Scoring Machine Operator No 07/06/16 9:53pm Organ Donor Yes 07/06/16 9:53pm Directive Response Recor ded Date/Time Advance Directives No 6:46am Health Care Power of Gum Scoring Machine Operator No 08/01/15 6:46am Organ Donor Yes 08/01/15 6:46am Resuscitation Status Full Code 08/01/15 6:46am Directive Response Recor ded Date/Time Advance Directives No 6:58am Health Care Power of Gum Scoring Machine Operator No 02/23/14 6:58am Organ Donor Yes 02/23/14 6:58am Resuscitation Status Full Code 02/23/14 6:58am Directive Response Recor ded Date/Time Advance Directives No 9:46pm Health Care Power of Gum Scoring Machine Operator No 07/04/14 9:46pm Organ Donor Yes 07/04/14 9:46pm Resuscitation Status Full Code 07/04/14 9:46pm Directive Response Recor ded Date/Time Advance Directives No 3:02pm Health Care Power of Gum Scoring Machine Operator No 08/01/14 3:02pm Organ Donor Yes 08/01/14 3:02pm Resuscitation Status Full Code 08/01/14 3:02pm Directive Response Recor ded Date/Time Advance Directives No 9:29pm Health Care Power of Gum Scoring Machine Operator No 05/01/17 9:29pm Organ Donor Yes 05/01/17 9:29pm Resuscitation Status Full Code 05/01/17 9:29pm Directive Response Recor ded Date/Time Advance Directives No 10:54am Health Care Power of Gum Scoring Machine Operator No 12/26/17 10:54am Organ Donor Yes 12/26/17 10:54am Resuscitation Status Full Code 12/26/17 10:54am Directive Response Recor ded Date/Time Advance Directives No 10:23pm Health Care Power of Gum Scoring Machine Operator No 03/05/18 10:23pm Organ Donor Yes 03/05/18 10:23pm Resuscitation Status Full Code 03/05/18 10:23pm Directive Response Recor ded Date/Time Advance Directives No 10:23pm Health Care Power of Gum Scoring Machine Operator No 03/05/18 10:23pm Organ Donor Yes 03/05/18 10:23pm Advance Directive Response Recorded Date/Time Advance Directives No Franklin barcenasalbert 2019 11:24am Health Care Power of Gum Scoring Machine Operator No August 31, 2019 11:24am Organ Donor Yes August 31, 2019 11:24am Resuscitation Status Full Code August 31, 2019 11:24am Discharge Instructions No hospital discharge instructions.No hospital discharge instructions. Patient Instructions Physician Instructions New, Converted or Re-Newed RX: Transmitted to Pharmacy Additional Follow Up: Yes (6 weeks) Activity: Activity as Tolerated Driving Instructions: You May Drive NO SMOKING: NO SMOKING Nothing Inside Vagina: No Douching, No [place], No Tampons Discharge Diet: No Restrictions Symptoms to Report to : Bleeding Excessive, Fever Over 101 Degrees F, Vaginal Bleeding Increase, Cramps in Feet or Legs, Pain/Pressure in Shoulder, Vaginal Discharge Foul, Dizziness/Fainting For Any Problems or Questions: Contact Your Physician Bathing Instructions: Shower No hospital discharge instructions.No hospital discharge instructions.No hospital discharge instructions.No hospital discharge instruction information available.No hospital discharge instruction information available.No hospital discharge instruction information available.No hospital discharge instruction information available. Summary Purpose eClinicalWorks SubmissioneClinicalWorks SubmissioneClinicalWorks SubmissioneClinicalWorks SubmissioneClinicalWorks SubmissioneClinicalWorks Submission Chief Complaint and Reason for Visit Chief Complaint Dental Problems/Pain Reason for Visit [id number] Dental abscess Chief Complaint Dental Problems/Pain Reason for Visit [id number] Odonogenic maxillary sinusitis left molar abscess Additional Source Comments This clinical document has been generated using [employer] software that has been certified by the Office of the National Coordinator for Health Information Technology (ONC 15.99.04.3023.Diam.31.00.0.210191) and the National Committee for Ground Crew Chief (NCQA, as an eMeasure certified technology). FOR RECORDS PERTAINING TO PATIENTS WHO ARE OR HAVE BEEN ENROLLED IN A CHEMICAL D EPENDENCY/SUBSTANCE ABUSE PROGRAM, SOME INFORMATION MAY BE OMITTED. This clinica l summary was aggregated from multiple sources. Caution should be exercised in using it in the provision of clinical care. This summary normalizes information from multiple sources, and as a consequence, information in this document may ma terially change the coding, format and clinical context of patient data. In stepan tion, data may be omitted in some cases. CLINICAL DECISIONS SHOULD BE BASED ON T HE PRIMARY CLINICAL RECORDS. [employer] provides no warranty or guara ntee of the accuracy or completeness of information in this document.The followi ng information is based on time limited clinical information UNRECOGNIZED CONTENT PROVIDED BELOW FOR UNRECOGNIZED SECTION MEDICAL (GENERAL) HISTORY Type Description Date Medical History anemia Medical History chronic ear infections Surgical History myringotomy with ve ntilating tube x4 as child Surgical History bladder surgery for incontinence as child Surgical History dilatation and cure ttage s/p miscarriage () 10/2013 Hospitalization History child UNRECOGNIZED CONTENT PROVIDED BELOW FOR UNRECOGNIZED SECTION REASON FOR VISIT [facility]
--- OUTSIDE RECORDS SUMMARY | 2019-12-30 08:41 | XMS REPORT | Continuity of Care Document ---
Author Organization Unknown Address Unknown Phone Unavailable Allergies Active Description Code Type Severity Reaction Onset Reported/Identified Relationship to Patient Clinical Status Yes NO KNOWN DRUG ALLERGIES UNKNOWN NO KNOWN DRUG ALLERG Yes No Known Drug Allergies [id number] Drug Allergy Unknown N/A 10/07/2010 Medications Medication Packaging Start Date St op Date Route Dosage Sig LACTATED RINGERS 1000CC IV BAG INJ ml 04/30/2018 05/07/2018 CONTINUOUSEVERY 0 Hour FENTANYL INJ 100 MCG/2CC VIAL MCG 04/30/2018 04/30/2018 ONCE&0715 CEFAZOLIN VIAL INJ 1 GM (ANCEF) GM 04/30/2018 04/30/2018 ONCE&0800 FENTANYL INJ 100 MCG/2CC VIAL MCG 04/30/2018 04/30/2018 ONCE&0932 Problems Date Dx Coded Attending Type Code Diagnosis Diagnosed By 04/29/2008 APURVA DUMONT APRN 48 6 PNEUMONIA UNSPECIFIED 04/29/2008 DONIS ESCOBAR APRN R 4 86 PNEUMONIA UNSPECIFIED 04/29/2008 OPAL ANDREW DDS 48 6 PNEUMONIA UNSPECIFIED 07/23/2008 APURVA DUMONT APRN 46 1.9 SINUSITIS ACUTE 07/23/2008 DONIS ESCOBAR APRN R 461.9 SINUSITIS ACUTE 07/23/2008 OPAL ANDREW DDS 46 1.9 SINUSITIS ACUTE 08/12/2008 APURVA DUMONT APRN 079.99 VIRAL SYNDROME 08/12/2008 DONIS ESCOBAR APRN R 079.99 VIRAL SYNDROME 08/12/2008 OPAL ANDREW DDS 079.99 VIRAL SYNDROME 10/13/2008 APURVA DUMONT APRN 381.01 OTITIS MEDIA ACUTE SEROUS 10/13/2008 DONIS ESCOBAR APRN R 381.01 OTITIS MEDIA ACUTE SEROUS 10/13/2008 OPAL ANDREW DDS 381.01 OTITIS MEDIA ACUTE SEROUS 10/15/2008 APURVA DUMONT APRN V25.40 visit for: contraceptive surveillance 10/15/2008 APURVA DUMONT APRN V6 9.2 sexually active, frequently with new partners 10/15/2008 APURVA DUMONT APRN V72.31 Pelvic Exam (Internal) 10/15/2008 APURVA DUMONT APRN V7 4.5 visit for: screening exam bact/spirochetal venereal disease 10/15/2008 SHAWN POWELL DONIS R V25.40 visit for: contraceptive surveillance 10/15/2008 SHAWN POWELL DONIS R V69.2 sexually active, frequently with new partners 10/15/2008 EBONY ESCOBAR APRNINA R V72.31 Pelvic Exam (Internal) 10/15/2008 SHAWN POWELL DONIS R V74.5 visit for: screening exam bact/spirochetal venereal di sease 10/15/2008 WHITE DDSOPAL D V25.40 visit for: contraceptive surveillance 10/15/2008 WHITE DDSOPAL D V6 9.2 sexually active, frequently with new partners 10/15/2008 WHITE DDSOPAL V72.31 Pelvic Exam (Internal) 10/15/2008 WHITE CHELLESOPAL V7 4.5 visit for: screening exam bact/spirochetal venereal disease 10/16/2008 APURVA DUMONT APRN V25.49 SURVEILLANCE OF OTHER CONTRACEPTIVE METHOD 10/16/2008 EBONY ESCOBAR APRNINA R V25.49 SURVEILLANCE OF OTHER CONTRACEPTIVE METHOD 10/16/2008 KAMRAN CORBETTSOPAL D V25.49 SURVEILLANCE OF OTHER CONTRACEPTIVE METHOD 10/25/2008 APURVA DUMONT APRN 11 2.1 CANDIDIASIS VAGINAL 10/25/2008 EBONY ESCOBAR APRNINA R 112.1 CANDIDIASIS VAGINAL 10/25/2008 KAMRAN CORBETTSOPAL D 11 2.1 CANDIDIASIS VAGINAL 11/19/2008 APURVA DUMONT APRN 381.10 OTITIS MEDIA SIMPLE OR UNSPECIFIED 11/19/2008 DONIS ESCOBAR APRN R 381.10 OTITIS MEDIA SIMPLE OR UNSPECIFIED 11/19/2008 KAMRAN DDSOPAL D 381.10 OTITIS MEDIA SIMPLE OR UNSPECIFIED 12/16/2008 APURVA DUMONT APRN 59 9.0 URINARY TRACT INFECTION 12/16/2008 APURVA DUMONT APRN 78 8.1 pain during urination (dysuria) 12/16/2008 DONIS ESCOBAR APRN R 599.0 URINARY TRACT INFECTION 12/16/2008 DONIS ESCOBAR APRN R 788.1 pain during urination (dysuria) 12/16/2008 OPAL ANDREW DDS 59 9.0 URINARY TRACT INFECTION 12/16/2008 KAMRAN CORBETTSOPAL 78 8.1 pain during urination (dysuria) 04/05/2009 APURVA DUMONT APRN 787.01 NAUSEA WITH VOMITING 04/05/2009 APURVA DUMONT APRN V2 2.2 STATE INCIDENTAL 04/05/2009 DONIS ESCOBAR APRN R 787.01 NAUSEA WITH VOMITING 04/05/2009 DONIS ESCOBAR APRN V22.2 STATE INCIDENTAL 04/05/2009 OPAL ANDREW DDS 787.01 NAUSEA WITH VOMITING 04/05/2009 OPAL ANDREW DDS V2 2.2 STATE INCIDENTAL 11/16/2009 APURVA DUMONT APRN V65.11 NEW MOMMY VISIT 11/16/2009 DONIS ESCOBAR APRN V65.11 NEW MOMMY VISIT 11/16/2009 OPAL ANDREW DDS V65.11 NEW MOMMY VISIT 12/02/2009 Ot 285.9 ANEM IA NOS 12/02/2009 Ot 648.21 ANE SENAIT-DELIVERED 12/02/2009 Ot 649.01 TOB ACCO USE DISORDER COMP PREG/CHILDBIRT 12/02/2009 Ot 792.3 ABN FIND-AMNIOTIC FLUID 12/02/2009 Ot V06.1 [id number], COMBINED [ 12/02/2009 Ot V23.7 INSU FFICIENT CARE 12/02/2009 Ot V27.0 DELI ALVIN-SINGLE LIVEBORN 09/10/2010 APURVA DUMONT APRN V72.42 TEST POSITIVE RESULT 09/10/2010 DONIS ESCOBAR APRN V72.42 TEST POSITIVE RESULT 09/10/2010 OPAL ANDREW DDS V72.42 TEST POSITIVE RESULT 10/07/2010 Ot 623.8 10/07/2010 Ot 634.91 05/23/2011 Ot 625.9 05/23/2011 Ot 648.93 06/10/2011 Ot 625.8 06/10/2011 Ot 646.83 10/07/2011 Ot 285.1 10/07/2011 Ot 285.9 10/07/2011 Ot 648.21 10/07/2011 Ot 648.22 10/07/2011 Ot 664.01 10/07/2011 Ot V04.81 10/07/2011 Ot V27.0 11/03/2011 Ot 724.5 11/03/2011 Ot 784.0 11/06/2011 APURVA DUMONT APRN 380.10 INFECTIVE OTITIS EXTERNA UNSPECIFIED 11/06/2011 APURVA DUMONT APRN T 38 2.9 UNSPECIFIED OTITIS MEDIA 11/06/2011 APURVA DUMONT APRN V65.42 COUNSELING - SMOKING CESSATION 11/06/2011 EBONY ESCOBAR APRNINA R 380.10 INFECTIVE OTITIS EXTERNA UNSPECIFIED 11/06/2011 DONIS ESCOBAR APRN R 382.9 UNSPECIFIED OTITIS MEDIA 11/06/2011 SHAWN POWELL DONIS R V65.42 COUNSELING - SMOKING CESSATION 11/06/2011 WHITE DDS, OPAL D 380.10 INFECTIVE OTITIS EXTERNA UNSPECIFIED 11/06/2011 WHITE DDS, OPAL D 38 2.9 UNSPECIFIED OTITIS MEDIA 11/06/2011 WHITE DDS, OPAL D V65.42 COUNSELING - SMOKING CESSATION 02/23/2012 Ot 623.8 CARLOS NFLAM DIS VAGINA NEC 02/23/2012 Ot 626.8 MENS TRUAL DISORDER NEC 07/05/2012 APURVA DUMONT APRN 00 8.8 GASTROENTERITIS, VIRAL 07/05/2012 DONIS ESCOBAR APRN R 008.8 GASTROENTERITIS, VIRAL 07/05/2012 WHITE DDS, OPAL D 00 8.8 GASTROENTERITIS, VIRAL 10/07/2013 CLEMENTE OMRA DO Ot 632 MISSED 02/13/2014 TRACY NEWMAN Ot 640.03 THREATEN ABORT-ANTEPART 02/23/2014 LEE CONWAY DO Ot 634.91 SPON ABORT UNCOMPL-INC 07/04/2014 YOSELIN RAND GETTER WELDER Ot V22 .2 PREG STATE, INCIDENTAL 07/04/2014 YOSELIN RAND GETTER WELDER Ot V71 .4 OBSERV-ACCIDENT NEC 08/01/2014 MUSTAPHA FORRESTER MD Ot 634.91 SPON ABORT UNCOMPL-INC 02/14/2015 CURTIS MILLER MD Ot 623 .8 NONINFLAM DIS VAGINA NEC 02/14/2015 CURTIS MILLER MD Ot 640.93 HEM EARLY PREG-ANTEPART 08/03/2015 CLEMENTE MORA DO Ot D62 ACUTE POSTHEMORRHAGIC ANEMIA 08/03/2015 CLEMENTE MORA DO Ot M94.0 CHONDROCOSTAL JUNCTION SYNDROME [TIETZE] 08/03/2015 MORGAN SWANN CLEMENTE Oswald Ot O09.2 93 SUPRVSN OF PREG W POOR REPRODCTV OR OBST 08/03/2015 MORGAN SWANN CLEMENTE C Ot O60.14X0 LABOR THIRD TRI W DELIVE 08/03/2015 MORGAN SWANN CLEMENTE Oswald Ot O69.81X0 LABOR AND DEL COMP BY CORD AROUND NECK, 08/03/2015 MORGAN SWANN CLEMENTE Margret Ot O72.0 THIRD-STAGE HEMORRHAGE 08/03/2015 MORGAN SWANN CLEMENTE Oswald Ot O90.8 1 ANEMIA OF THE PUERPERIUM 08/03/2015 MORA CLEMENTE C Ot O99.3 34 SMOKING (TOBACCO) COMPLICATING CHILDBIRT 08/03/2015 MORA CLEMENTE C Ot O99.8 9 OTH DISEASES AND CONDITIONS COMPL PREG/C 08/03/2015 MORGAN SWANN CLEMENTE C Ot Z23 ENCOUNTER FOR IMMUNIZATION 08/03/2015 MORGAN SWANN CLEMENTE C Ot Z37.0 SINGLE LIVE 08/03/2015 MORGAN SWANN CLEMENTE Oswald Ot Z3A.3 7 37 WEEKS GESTATION OF 03/20/2016 AVI SPENCE, KRISTEN Mann Ot K02.9 DENTAL CARIES, UNSPECIFIED 03/20/2016 AVI SPENCE, KRISTEN Mann Ot K08.8 OTHER SPECIFIED DISORDERS OF TEETH AND S 03/20/2016 AVI SPENCE, KRISTEN Mann Ot R11.0 NAUSEA 03/22/2016 RKISTEN CÁRDENAS MD Ot K02.9 DENTAL CARIES, UNSPECIFIED 03/22/2016 AVI SPENCE, KRISTEN T Ot K08.8 OTHER SPECIFIED DISORDERS OF TEETH AND S 03/22/2016 AVI SPENCE, KRISTEN T Ot R11.0 NAUSEA 07/06/2016 YOSELIN RAND APRN Ot K02 .9 DENTAL CARIES, UNSPECIFIED 07/06/2016 YOSELIN RAND APRN Ot K08 .9 DISORDER OF TEETH AND SUPPORTING STRUCTU 07/07/2016 YOSELIN RAND APRN Ot K02 .9 DENTAL CARIES, UNSPECIFIED 07/07/2016 YOSELIN RAND APRN Ot K08 .9 DISORDER OF TEETH AND SUPPORTING STRUCTU 10/02/2016 YOSELIN RAND APRN Ot B37 .0 CANDIDAL STOMATITIS 10/02/2016 YOSELIN RAND APRN Ot K02 .9 DENTAL CARIES, UNSPECIFIED 10/02/2016 YOSELIN RAND APRN Ot K08 .9 DISORDER OF TEETH AND SUPPORTING STRUCTU 10/03/2016 YOSELIN RAND APRN Ot B37 .0 CANDIDAL STOMATITIS 10/03/2016 YOSELIN RAND APRN Ot K02 .9 DENTAL CARIES, UNSPECIFIED 10/03/2016 YOSELIN RAND APRN Ot K08 .9 DISORDER OF TEETH AND SUPPORTING STRUCTU 05/01/2017 YOSELIN RAND APRN Ot F17.210 NICOTINE DEPENDENCE, CIGARETTES, UNCOMPL 05/01/2017 YOSELIN RAND APRN Ot K02 .9 DENTAL CARIES, UNSPECIFIED 05/01/2017 YOSELIN RAND APRN Ot K08.89 OTHER SPECIFIED DISORDERS OF TEETH AND S 05/01/2017 YOSELIN RAND APRN Ot Z80 .9 FAMILY HISTORY OF MALIGNANT NEOPLASM, UN 05/01/2017 YOSELIN RAND APRN Ot Z86.19 PERSONAL HISTORY OF OTHER INFECTIOUS AND 05/03/2017 YOSELIN RAND APRN Ot F17.210 NICOTINE DEPENDENCE, CIGARETTES, UNCOMPL 05/03/2017 YOSELIN RAND APRN Ot K02 .9 DENTAL CARIES, UNSPECIFIED 05/03/2017 YOSELIN RAND APRN Ot K08.89 OTHER SPECIFIED DISORDERS OF TEETH AND S 05/03/2017 YOSELIN RAND APRN Ot Z80 .9 FAMILY HISTORY OF MALIGNANT NEOPLASM, UN 05/03/2017 YOSELIN RAND APRN Ot Z86.19 PERSONAL HISTORY OF OTHER INFECTIOUS AND 05/07/2017 YOSELIN RAND APRN Ot F17.210 NICOTINE DEPENDENCE, CIGARETTES, UNCOMPL 05/07/2017 YOSELIN RAND APRN Ot K02 .9 DENTAL CARIES, UNSPECIFIED 05/07/2017 YOSELIN RAND APRN Ot K08.89 OTHER SPECIFIED DISORDERS OF TEETH AND S 05/07/2017 YOSELIN RAND APRN Ot Z80 .9 FAMILY HISTORY OF MALIGNANT NEOPLASM, UN 05/07/2017 YOSELIN RAND APRN Ot Z86.19 PERSONAL HISTORY OF OTHER INFECTIOUS AND 10/30/2017 CLEMENTE MORA DO Ot Z36.8 9 ENCOUNTER FOR OTHER SPECIFIED 10/30/2017 CLEMENTE MORA DO, Ot Z3A.2 0 20 WEEKS GESTATION OF 12/26/2017 DARIEL COLORADO MD, Ot O47.03 FALSE LABOR BEFORE 37 COMPLETED WEEKS OF 12/26/2017 DARIEL COLORADO MD, Ot Z3A.28 28 WEEKS GESTATION OF 01/01/2018 DARIEL COLORADO MD, Ot O47.03 FALSE LABOR BEFORE 37 COMPLETED WEEKS OF 01/01/2018 DARIEL COLORADO MD, Ot Z3A.28 28 WEEKS GESTATION OF 01/01/2018 DARIEL COLORADO MD, Ot O47.03 FALSE LABOR BEFORE 37 COMPLETED WEEKS OF 01/01/2018 DARIEL COLORADO MD, Ot Z3A.28 28 WEEKS GESTATION OF 03/07/2018 CLEMENTE MORA DO Ot O80 ENCOUNTER FOR FULL-TERM UNCOMPLICATED DE 03/07/2018 CLEMENTE MORA DO, Ot Z37.0 SINGLE LIVE 03/07/2018 CLEMENTE MORA DO, Ot Z3A.3 8 38 WEEKS GESTATION OF 04/30/2018 Maeve Andersen W 550.92 BILATERAL INGUINAL HERNIA, WITHOUT MENTI ON OF OBSTRUCTION OR GANGRENE (NOT SPECIFIED RECURRENT) 04/30/2018 Maeve Andersen W K40.20 BI INGUINAL HERNIA, W/O OBST OR GANGRENE, NOT SPCF RECUR 04/30/2018 Maeve Andersen W V25.2 ENCOUNTER FOR STERILIZATION 04/30/2018 Maeve Andersen Z30.2 ENCOUNTER FOR STERILIZATION 04/03/2019 KRISTEN CÁRDENAS MD, Ot D64.9 ANEMIA, UNSPECIFIED 04/03/2019 KRISTEN CÁRDENAS MD, Ot K02.9 DENTAL CARIES, UNSPECIFIED 04/03/2019 KRISTEN CÁRDENAS MD, Ot K04.7 PERIAPICAL ABSCESS WITHOUT SINUS 04/03/2019 KRISTEN CÁRDENAS MD, Ot K08.89 OTHER SPECIFIED DISORDERS OF TEETH AND S 04/03/2019 KRISTEN CÁRDENAS MD, Ot Z77.22 CNTCT W AND EXPSR TO ENVIRON TOBACCO SMO 04/03/2019 KRISTEN CÁRDENAS MD, Ot Z82.49 FAMILY HX OF ISCHEM HEART DIS AND OTH DI 04/03/2019 KRISTEN CÁRDENAS MD Ot Z98.51 TUBAL LIGATION STATUS 04/05/2019 KRISTEN CÁRDENAS MD, Ot D64.9 ANEMIA, UNSPECIFIED 04/05/2019 KRISTEN CÁRDENAS MD Ot K02.9 DENTAL CARIES, UNSPECIFIED 04/05/2019 KRISTEN CÁRDENAS MD, Ot K04.7 PERIAPICAL ABSCESS WITHOUT SINUS 04/05/2019 KRISTEN CÁRDENAS MD, Ot K08.89 OTHER SPECIFIED DISORDERS OF TEETH AND S 04/05/2019 KRISTEN CÁRDENAS MD, Ot Z77.22 CNTCT W AND EXPSR TO ENVIRON TOBACCO SMO 04/05/2019 KRISTEN CÁRDENAS MD, Ot Z82.49 FAMILY HX OF ISCHEM HEART DIS AND OTH DI 04/05/2019 KRISTEN CÁRDENAS MD, Ot Z98.51 TUBAL LIGATION STATUS Procedures Code Description Performed By Per formed On 73.6 EPISIOTOMY 11/30/2009 [id number] EX TRACTION OF PRODUCTS OF CONCEPTION, RE 08/01/2015 [id number] DE LIVERY OF PRODUCTS OF CONCEPTION, EXTE 08/01/2015 [id number] DE LIVERY OF PRODUCTS OF CONCEPTION, EXTE 03/06/2018 Results Test Result Range Complete urinalysis with reflex to cultu re - 12/26/17 10:59 Urine color determination YELLOW NRG Urine clarity determination SLIGHTLY CLOUDY NRG Urine pH measurement by test strip 8 5-9 Specific gravity of urine by test strip 1.010 1.016-1.022 Urine protein assay by test strip, semi-quantitative NEGATIVE NEGATIVE Urine glucose detection by automated test strip NE GATIVE NEGATIVE Erythrocytes detection in urine sediment by light micr oscopy NEGATIVE NEGATIVE Urine ketones detection by automated test strip NE GATIVE NEGATIVE Urine nitrite detection by test strip NEGATIVE NEGATIVE Urine total bilirubin detection by test strip NEGA TIVE NEGATIVE Urine urobilinogen measurement by automated test strip (mass/volume) NORMAL NORMAL Urine leukocyte esterase detection by dipstick NEG ATIVE NEGATIVE Automated urine sediment erythrocyte cou nt by microscopy (number/high power field) NONE NRG Automated urine sediment leukocyte count by microscopy (number/high power field) RARE NRG Bacteria detection in urine sediment by light microsco py FEW NRG Squamous epithelial cells detection in u rine sediment by light microscopy 10-25 NRG Crystals detection in urine sediment by light microsco py PRESENT NRG Casts detection in urine sediment by light microscopy NONE NRG Mucus detection in urine sediment by light microscopy NEGATIVE NRG Complete urinalysis with reflex to culture NO NRG Amorphous sediment detection in urine sediment by ligh t microscopy RARE MARY ELLEN PHOSPHATE NRG Bacterial urine culture - 12/26/17 10:59 Complete blood count (CBC) with automate d white blood cell (WBC) differential - 03/05/18 22:17 Blood leukocytes automated count (number/volume) 11.8 10*3/uL 4.3-11.0 Blood erythrocytes automated count (number/volume) 4.22 10*6/uL 4.35-5.85 Venous blood hemoglobin measurement (mass/volume) 10.9 g/dL 11.5-16.0 Blood hematocrit (volume fraction) 32 % 35-52 Automated erythrocyte mean corpuscular volume 77 [ foz_us] 80-99 Automated erythrocyte mean corpuscular h emoglobin (mass per erythrocyte) 26 pg 25-34 Automated erythrocyte mean corpuscular h emoglobin concentration measurement (mass/volume) 34 g/dL 32-36 Automated erythrocyte distribution width ratio 14. 2 % 10.0- 14.5 Automated blood platelet count (count/volume) 425 10*3/uL 130-400 Automated blood platelet mean volume measurement 10.1 [foz_us] 7.4-10.4 Automated blood neutrophils/100 leukocytes 73 % 42-75 Automated blood lymphocytes/100 leukocytes 19 % 12-44 Blood monocytes/100 leukocytes 6 % 0-12 Automated blood eosinophils/100 leukocytes 1 % 0-10 Automated blood basophils/100 leukocytes 0 % 0-10 Blood neutrophils automated count (number/volume) 8.7 10*3 1.8-7.8 Blood lymphocytes automated count (number/volume) 2.3 10*3 1.0-4.0 Blood monocytes automated count (number/volume) 0. 7 10*3 0.0-1.0 Automated eosinophil count 0.1 10*3/uL 0 .0-0.3 Automated blood basophil count (count/volume) 0.0 10*3/uL 0.0-0.1 Blood type T Indirect antibody screen pa gerson - 03/05/18 22:17 ABO+Rh group AP NRG Transfusion band number [id number] NRG Blood group antibody screen NEGATIVE NR G Complete urinalysis with reflex to cultu re - 03/05/18 23:00 Urine color determination JOSH NRG Urine clarity determination CLEAR NR G Urine pH measurement by test strip 6 5-9 Specific gravity of urine by test strip 1.020 1.016-1.022 Urine protein assay by test strip, semi-quantitative 2+ NEGATIVE Urine glucose detection by automated test strip NE GATIVE NEGATIVE Erythrocytes detection in urine sediment by light micr oscopy 1+ NEGATIVE Urine ketones detection by automated test strip NE GATIVE NEGATIVE Urine nitrite detection by test strip NEGATIVE NEGATIVE Urine total bilirubin detection by test strip NEGA TIVE NEGATIVE Urine urobilinogen measurement by automated test strip (mass/volume) 1 mg/dL NORMAL Urine leukocyte esterase detection by dipstick 1+ NEGATIVE Automated urine sediment erythrocyte cou nt by microscopy (number/high power field) [HPF] NRG Automated urine sediment leukocyte count by microscopy (number/high power field) RARE NRG Bacteria detection in urine sediment by light microsco py TRACE NRG Squamous epithelial cells detection in u rine sediment by light microscopy 25-50 NRG Crystals detection in urine sediment by light microsco py NONE NRG Casts detection in urine sediment by light microscopy NONE NRG Mucus detection in urine sediment by light microscopy NEGATIVE NRG Complete urinalysis with reflex to culture NO NRG Complete blood count (CBC) with automate d white blood cell (WBC) differential - 03/07/18 06:37 Blood leukocytes automated count (number/volume) 9.6 10*3/uL 4.3-11.0 Blood erythrocytes automated count (number/volume) 3.95 10*6/uL 4.35-5.85 Venous blood hemoglobin measurement (mass/volume) 10.0 g/dL 11.5-16.0 Blood hematocrit (volume fraction) 31 % 35-52 Automated erythrocyte mean corpuscular volume 78 [ foz_us] 80-99 Automated erythrocyte mean corpuscular h emoglobin (mass per erythrocyte) 25 pg 25-34 Automated erythrocyte mean corpuscular h emoglobin concentration measurement (mass/volume) 32 g/dL 32-36 Automated erythrocyte distribution width ratio 14. 3 % 10.0- 14.5 Automated blood platelet count (count/volume) 343 10*3/uL 130-400 Automated blood platelet mean volume measurement 10.4 [foz_us] 7.4-10.4 Automated blood neutrophils/100 leukocytes 59 % 42-75 Automated blood lymphocytes/100 leukocytes 32 % 12-44 Blood monocytes/100 leukocytes 7 % 0-12 Automated blood eosinophils/100 leukocytes 2 % 0-10 Automated blood basophils/100 leukocytes 0 % 0-10 Blood neutrophils automated count (number/volume) 5.7 10*3 1.8-7.8 Blood lymphocytes automated count (number/volume) 3.1 10*3 1.0-4.0 Blood monocytes automated count (number/volume) 0. 7 10*3 0.0-1.0 Automated eosinophil count 0.2 10*3/uL 0 .0-0.3 Automated blood basophil count (count/volume) 0.0 10*3/uL 0.0-0.1 BMP - 04/26/18 12:47 Anion Gap 14 6-14 BUN 8 mg/dL 5-25 Calcium 9.5 mg/dL 8.3-10.4 Chloride 106 mmol/L 95-114 CO2 24 mEq/L 22-33 Creat 0.76 mg/dL 0.50-1.50 eGFR 91 mL/min/1.73m2 >59 Glucose 85 mg/dL 70-110 Osmo 287 280-295 Potassium 4.4 mmol/L 3.5-5.3 Sodium 140 mmol/L 134-148 MRSA Screen - 04/26/18 12:47 FINAL CULTURE RESULTS MRSA Negative Nasal Culture MEDIA PLATED Setup at 14:00 on 04/26/2018 Protime - 04/30/18 07:18 INR 1.0 1.0-4.0 Protime 11.3 Sec 9.9-12.8 Urine Culture - 04/30/18 08:37 PRELIM CULTURE RESULTS No Growth 24 hours FINAL CULTURE RESULTS No Growth 48 hours MEDIA PLATED Setup at 13:46 on 04/30/2018 CULTURE SOURCE cath Complete blood count (CBC) with automate d white blood cell (WBC) differential - 08/31/19 11:40 Blood leukocytes automated count (number/volume) 8.6 10*3/uL 4.3-11.0 Blood erythrocytes automated count (number/volume) 4.46 10*6/uL 4.35-5.85 Venous blood hemoglobin measurement (mass/volume) 12.1 g/dL 11.5-16.0 Blood hematocrit (volume fraction) 37 % 35-52 Automated erythrocyte mean corpuscular volume 83 [ foz_us] 80-99 Automated erythrocyte mean corpuscular h emoglobin (mass per erythrocyte) 27 pg 25-34 Automated erythrocyte mean corpuscular h emoglobin concentration measurement (mass/volume) 33 g/dL 32-36 Automated erythrocyte distribution width ratio 16. 3 % 10.0- 14.5 Automated blood platelet count (count/volume) 336 10*3/uL 130-400 Automated blood platelet mean volume measurement 9.6 [foz_us] 7.4-10.4 Automated blood neutrophils/100 leukocytes 69 % 42-75 Automated blood lymphocytes/100 leukocytes 22 % 12-44 Blood monocytes/100 leukocytes 8 % 0-12 Automated blood eosinophils/100 leukocytes 2 % 0-10 Automated blood basophils/100 leukocytes 0 % 0-10 Blood neutrophils automated count (number/volume) 5.9 10*3 1.8-7.8 Blood lymphocytes automated count (number/volume) 1.9 10*3 1.0-4.0 Blood monocytes automated count (number/volume) 0. 7 10*3 0.0-1.0 Automated eosinophil count 0.1 10*3/uL 0 .0-0.3 Automated blood basophil count (count/volume) 0.0 10*3/uL 0.0-0.1 Serum or plasma choriogonadotropin (preg adama test) detection - 08/31/19 11:40 Serum or plasma choriogonadotropin ( test) de tection NEGATIVE NEGATIVE Serum or plasma C reactive protein measu rement (mass/volume) - 08/31/19 11:40 Serum or plasma C reactive protein measurement (mass/v olume) 3.04 mg/dL 0.00-0.50 Encounters ACCT No. Visit Date/Time Discharge Status Pt. Type Provider Facility Loc./Unit Complaint [id number] 11/20/2013 09:02:00 11/20/2013 23:59: 59 CLS Outpatient OPAL ANDREW DDS [id number] 11/06/2013 08:55:00 11/06/2013 23:59: 59 CLS Outpatient DONIS ESCOBAR APRN [id number] 07/05/2012 11:56:00 07/05/2012 23:59:5 9 CLS Outpatient APURVA DUMONT APRN [id number] 04/30/2018 06:53:00 Document Registration [id number] 03/19/2019 15:10:00 03/19/2019 23:59:5 9 CLS Outpatient [facility] [id number] 04/30/2018 06:53:00 04/30/2018 10:02: 00 DIS Outpatient NathalyMaeve [id number] 04/26/2018 12:27:00 04/26/2018 23:59: 00 DIS Outpatient NathalyPedro adairbritt [id number] 04/29/2018 14:20:56 Document Registration [id number] 08/31/2019 11:15:00 020 13:03:00 DIS Emergency YOSELIN RAND APRN [facility] ER DENTAL PAIN [id number] 04/03/2019 21:42:00 019 22:18:00 DIS Emergency AVI SPENCE, KRISTEN Mann [facility] ER DENTAL PAIN [id number] 12/26/2017 10:31:00 018 12:30:00 DIS Outpatient MIROSLAVA SPENCE, DARIEL Torres [facility] WSo PELVIC PAIN/POS S CONTRACTIONS [id number] 10/29/2017 09:45:00 018 23:59:59 CLS Outpatient CLEMENTE MORA DO [facility] RAD Z34.92 FETUS PRESENT DU RING IN SECOND TR [id number] 05/01/2017 21:21:00 017 21:59:00 DIS Emergency YOSELIN RAND APRN [facility] ER TOOTH PAIN [id number] 10/02/2016 18:52:00 017 19:16:00 DIS Emergency YOSELIN RAND APRN [facility] ER DENTAL PAIN [id number] 07/06/2016 21:45:00 016 22:29:00 DIS Emergency YOSELIN RAND APRN [facility] ER DENTAL PAIN [id number] 03/20/2016 18:41:00 016 19:30:00 DIS Emergency AVI SPENCE, KRISTEN Mann [facility] ER DENTAL PAIN [id number] 08/01/2015 07:40:00 015 13:45:00 DIS Inpatient CLEMENTE MORA DO [facility] LDRP LABOR [id number] 02/14/2015 08:17:00 015 10:15:00 DIS Emergency PAUL SPENCE, CURTIS Calabrese [facility] ER VAGINAL BLEEDING,13 WEE [place] [id number] 08/01/2014 14:50:00 014 17:50:00 DIS Emergency MITZY SPENCE, MUSTAPHA Pelaez [facility] ER DIZZINESS; POSS MISCARRIAGE [id number] 07/04/2014 21:15:00 014 22:50:00 DIS Emergency YOSELIN RAND APRN [facility] ER ABD INJ @ 6 WEEKS [id number] 02/23/2014 06:46:00 014 08:37:00 DIS Emergency LEE CONWAY DO [facility] ER ABD PAIN;POSS MISCARRIA GE [id number] 02/13/2014 17:24:00 014 23:59:59 CLS Emergency TRACY NEWMAN [facility] ER SPOTTING [id number] 10/07/2013 07:55:00 014 12:30:00 DIS Outpatient CLEMENTE MORA DO [facility] SDC MISSED AB [id number] 03/05/2018 22:05:[address] Inpatient CLEMENTE MORA DO [facility] LDRP LABOR [id number] 02/23/2012 00:38:00 Document Registration [id number] 11/03/2011 20:17:00 Document Registration [id number] 10/06/2011 07:32:00 Document Registration [id number] 06/10/2011 14:45:00 Document Registration [id number] 05/23/2011 17:51:00 Document Registration [id number] 10/07/2010 17:21:00 Document Registration [id number] 11/30/2009 08:23:00 Document Registration
[2019-12-30] MEDS ORDERED: LIDOCAINE 1% INJ 20 ML 20 ML VIAL INJ ONE (09:00)
[2019-12-30] MEDS ORDERED: CLIN300C11 PO (09:23)
--- NOTE | 2019-12-30 09:23 | ED EENT ---
History of Present Illness General Chief Complaint: Dental Problems/Pain Stated Complaint: JAW SWELLING Nursing Triage Note: pt presents to ed with complaints of r sided jaw swelling/pain x 2 days. Source: patient Exam Limitations: no limitations History of Present Illness Date Seen by Provider: December 30, 2019 Time Seen by Provider: 08:47 Initial Comments This 29-year-old woman presents to the emergency room with complaints of swelling on the right jaw. She believes this is related to a dental abscess. Interestingly, she has no significant pain. She denies fever. Symptoms have been present since yesterday. Allergies and Home Medications Allergies Coded Allergies: No Known Drug Allergies (Unverified , 10/07/10) Home Medications Acetaminophen 500 Mg Tablet, 1,000 MG PO Q6H PRN for PAIN Prescribed by: CLEMENTE MORA on 03/07/18 0245 Amoxicillin 500 Mg Capsule, 1,000 MG PO BID Prescribed by: KRISTEN PATEL on 04/03/19 2211 Clindamycin HCl 300 Mg Capsule, 300 MG PO TID Prescribed by: YOSELIN RAND on 08/31/19 1246 Clindamycin HCl 300 Mg Capsule, 300 MG PO QID Prescribed by: KRISTEN PATEL on 12/30/19 0923 Ferrous Sulfate 325 Mg Tablet, 325 MG PO DAILY Prescribed by: CLEMENTE MORA on 03/07/18 0245 Hydrocodone/Acetaminophen 1 Each Tablet, 1 TAB PO Q4-6HR do not fill unless clindamycin is also filled. Prescribed by: YOSELIN RAND on 08/31/19 1247 Ibuprofen 600 Mg Tablet, 600 MG PO Q6H Prescribed by: CLEMENTE MORA on 03/07/18 0245 Ondansetron 8 Mg Tab.rapdis, 8 MG PO Q6H PRN for NAUSEA/VOMITING Prescribed by: YOSELIN RAND on 08/31/19 1303 Patient Home Medication List Home Medication List Reviewed: Yes Review of Systems Review of Systems Constitutional: no symptoms reported Eyes: No Symptoms Reported Ears: No Symptoms Reported Nose: no symptoms reported Mouth: see HPI Throat: no symptoms reported Respiratory: no symptoms reported Cardiovascular: no symptoms reported Gastrointestinal: no symptoms reported : No Musculoskeletal: no symptoms reported Skin: no symptoms reported Neurological: No Symptoms Reported Past Gvuvamj-Alvosb-Cnbojx Hx Patient Social History Alcohol Use: Denies Use Recreational Drug Use: Yes Drug of Choice: marijuana Type Used: Cigarettes 2nd Hand Smoke Exposure: Yes Recent Foreign Travel: No Contact w/Someone Who Travel: No Recent Infectious Disease Expo: No Recent Hopitalizations: No Physical Abuse: No Sexual Abuse: No Mistreated: No Fear: No Immunizations Up To Date Tetanus Booster (TDap): Less than 5yrs PED Vaccines UTD: Yes Date of Influenza Vaccine: Jul 12, 2015 Seasonal Allergies Seasonal Allergies: Yes (summer) Past Medical History Surgeries: Yes Bladder Surgery, Ear Surgery, Tubal Ligation Respiratory: No Cardiac: No Neurological: No Reproductive Disorders: No (states recent cyst dx, 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 0.0oz. 58.274293tz; 23.00 BMI Method:Stated General Appearance: WD/WN, no apparent distress Eyes: bilateral eye normal inspection, bilateral eye PERRL, bilateral eye EOMI Ears: bilateral ear auricle normal, bilateral ear canal normal, bilateral ear TM normal Nose: normal inspection Mouth/Throat: pharynx normal, other (severe dental decay, especially of the right lower molars. Near the area of interest there is a molar worn down to the root. There is fullness lateral to this area with mild fluctuance that could represent abscess.) Neck: normal inspection Cardiovascular: regular rate, rhythm, no edema, no murmur Respiratory: lungs clear, normal breath sounds, no respiratory distress Neurologic/Psychiatric: candle maker II-XII nml as tested, no motor/sensory deficits, alert, normal mood/affect, oriented x 3 Skin: normal color, warm/dry Procedures/Interventions I&D : Progress The area was anesthetized with approximately 1 mL of lidocaine. An 18-gauge needle was used to enter the area of full dose. Aspiration yielded scant blood with no purulent drainage. Patient tolerated the procedure well. Progress/Results/Core Measures Results/Orders My Orders Orders - KRISTEN CÁRDENAS MD Lidocaine 1% Inj 20 Ml (Xylocaine 1% Inj (12/30/19 09:00) Vital Signs/I&O Blood Pressure Mean: 97 Progress Progress Note : Progress Note All options were discussed with the patient including treating with antibiotics alone versus attempt to drain an abscess possibly present. Patient states because of COVID-19 she does not know when she'll be able to get into a dentist. She requested that I attempted to drain. Multiple attempts at draining the abscess were unsuccessful. Patient was prescribed clindamycin. Departure Impression Primary Impression: Dental abscess Disposition: HOME, SELF-CARE Condition: Stable Departure-Patient Inst. Decision time for Depature: 09:21 Referrals: [facility] [place] ([place]P/Family) Primary Care Physician Patient Instructions: Tooth Abscess (DC) Add. Discharge Instructions: Complete your antibiotics as prescribed. Follow-up with a dentist as soon as possible for further evaluation and discussion of extraction. [place] your teeth gently with a soft bristle toothbrush twice daily. Rinse with antiseptic mouthwash if tolerated. You may continue using Tylenol (acetaminophen) up to 1000 mg every 6 hours as needed and/or ibuprofen up to 600 mg every 6 hours as needed for pain. Return to care if you have worsening symptoms, especially if you develop fevers over 100F. All discharge instructions reviewed with patient and/or family. Voiced understanding. Scripts Clindamycin HCl (Clindamycin HCl) 300 Mg Capsule 300 MG PO QID, #40 CAP Prov: KRISTEN CÁRDENAS MD 12/30/19 Copy Copies To 1: CODIE BEASLEY JOSHUA T MD December 30, 2019 09:23
[2019-12-30 09:40] VITALS: BP 126/80
== END 2019-12-30 09:38 | disposition home or self-care (01) ==
LOC: EDUNIT# 08:15 → ER 08:16
DX: K04.7 Periapical abscess without sinus (principal); D64.9 Anemia, unspecified; Z77.22 Contact with and (suspected) exposure to environmental tobacco smoke (acute) (chronic); Z82.49 Family history of ischemic heart disease and other diseases of the circulatory system
CPT/HCPCS: 41800

== ENCOUNTER 2021-05-24 21:21 | Emergency (ER) | payer SELFPAY ==
[~2021-05-24] VITALS: Ht 165 cm; Wt 59.0 kg
[~2021-05-24 21:21] MED LIST changes: -CLIN300C11 PO; +CLIN300C12 PO
[2021-05-24 21:45] VITALS: BP 116/77
[2021-05-24] MEDS ORDERED: TRIM/SULFAMETH 160/800 (SEPTRA DS) TAB PO ONE (22:00)
--- NOTE | 2021-05-24 22:01 | ED Integumentary General ---
General Chief Complaint: Skin/Wound Problems Stated Complaint: L ARM PIT SORE Source: patient Exam Limitations: no limitations History of Present Illness Date Seen by Provider: May 24, 2021 Time Seen by Provider: 21:47 Initial Comments Patient presents to the ER by private conveyance with chief complaint of 3 days progressive swelling redness associated with an ingrown hair in her left armpit. She does not have hidradenitis suppurativa. This the first time she had an abscess here. She has not been able to get it to drain anything and it is painful causing some pressure in her armpit which occasionally resulted in [id number] down her arm. Allergies and Home Medications Allergies Coded Allergies: No Known Drug Allergies (Unverified , 10/07/10) Patient Home Medication List Home Medication List Reviewed: Yes Acetaminophen (Tylenol Extra Strength) 500 Mg Tablet, 1,000 MG PO Q6H PRN for PAIN Prescribed by: CLEMENTE MORA on 03/07/18 0245 Amoxicillin (Amoxicillin) 500 Mg Capsule, 1,000 MG PO BID Prescribed by: KRISTEN PATEL on 04/03/19 2211 Clindamycin HCl (Clindamycin HCl) 300 Mg Capsule, 300 MG PO TID Prescribed by: YOSELIN RAND on 08/31/19 1246 Clindamycin HCl (Clindamycin HCl) 300 Mg Capsule, 300 MG PO QID Prescribed by: KRISTEN PATEL on 12/30/19 0923 Ferrous Sulfate (Ferrous Sulfate) 325 Mg Tablet, 325 MG PO DAILY Prescribed by: CLEMENTE MORA on 03/07/18 0245 Hydrocodone/Acetaminophen (Hydrocodone/Acetaminophen 5 MG/325 MG TAB) 1 Each Tablet, 1 TAB PO Q4-6HR Prescribed by: YOSELIN RAND on 08/31/19 1247 Ibuprofen (Ibu) 600 Mg Tablet, 600 MG PO Q6H Prescribed by: CLEMENTE MORA on 03/07/18 0245 Ondansetron (Ondansetron Odt) 8 Mg Tab.rapdis, 8 MG PO Q6H PRN for NAUSEA/VOMITING Prescribed by: YOSELIN RAND on 08/31/19 1303 Review of Systems Review of Systems Constitutional: No chills, No diaphoresis EENTM: No ear discharge, No hearing loss, No ear pain Respiratory: No cough, No short of breath Cardiovascular: No chest pain, No edema Gastrointestinal: No abdominal pain, No nausea, No vomiting Genitourinary: No discharge, No dysuria Skin: see HPI All Other Systems Reviewed Negative Unless Noted: Yes Past Xipmpdw-Dkxoex-Ukpbjh Hx Patient Social History Tobacco Use?: No Use of E-Cig and/or Vaping dev: No Immunizations Up To Date Tetanus Booster (TDap): Less than 5yrs PED Vaccines UTD: Yes Seasonal Allergies Seasonal Allergies: Yes (summer) Past Medical History Surgeries: Yes Bladder Surgery, Ear Surgery, Tubal Ligation Respiratory: No Cardiac: No Neurological: No Reproductive Disorders: No (states recent cyst dx, 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) Female Reproductive Disorders: Denies Sexually Transmitted Disease: No HIV/AIDS: No Genitourinary: No Gastrointestinal: No Musculoskeletal: No Endocrine: No HEENT: No Cancer: No Psychosocial: No Integumentary: No Blood Disorders: Yes (anemia) Adverse Reaction/Blood Tranf: No Family Medical History Aortic stenosis 19 MOTHER Cardiovascular disease 19 FATHER Cancer, Diabetes, Hypertension Physical Exam Vital Signs Vital Signs - First Documented 05/24/21 21:45 Temp 35.9 Pulse 80 Resp 16 B/P (MAP) 116/77 (90) Pulse Ox 100 O2 Delivery Room Air Capillary Refill : General Appearance: WD/WN, no apparent distress HEENT: PERRL/EOMI, pharynx normal Cardiovascular: normal peripheral pulses, regular rate, rhythm Respiratory: no respiratory distress, no accessory muscle use Extremities: normal range of motion, non-tender, normal inspection Neurologic/Psychiatric: alert, normal mood/affect, oriented x 3 Skin: other (Left armpit has a 3 x 3 cm round fluctuant mass with associated pointing pustule under a hair follicle and little bit of erythema.) Procedures/Interventions I&D : Site: Left axilla Blade Size: 11 I & D Procedure: betadine prep (Chlorhexidine and alcohol) Progress Skin was infiltrated with 1 cc of 1% lidocaine without epinephrine. Crosswise incision 3 mm x 2 mm was made and expressed about 5 cc of thin purulent discharge. Wound was flushed with sterile saline and dry gauze dressing was packed over top of it. Progress/Results/Core Measures Results/Orders My Orders Orders - PIERO CLANCY Sulfamethoxazole/Trimet Ds Tab (Bactrim (05/24/21 22:00) Vital Signs/I&O 05/24/21 21:45 Temp 35.9 Pulse 80 Resp 16 B/P (MAP) 116/77 (90) Pulse Ox 100 O2 Delivery Room Air Progress Progress Note : Time: 22:00 Progress Note The abscess is sufficiently superficial that we should be able to open and drain it easily without threatening the axillary nerves or vessels. She thinks she is up-to-date on tetanus. She will start on Bactrim and return precautions were discussed. Departure Impression Primary Impression: Folliculitis Additional Impression: Abscess Disposition: HOME, SELF-CARE Condition: Stable Departure-Patient Inst. Decision time for Depature: 22:19 Referrals: [facility] (PCP/Family) Primary Care Physician Patient Instructions: Folliculitis, Abscess Incision and Drainage (DC) Add. Discharge Instructions: Keep the wound clean with regular soap and water or shampoo. Dry clean gauze applied as often as necessary until the wound heals over the next 2 days. Tylenol and Motrin as necessary for pain. Warm moist heat applied directly to the armpit can help relieve pain and aid healing. Bactrim 1 tablet with food twice a day for the next week to prevent recurrence of infection. Return to the ER if you have more swelling that needs to be drained. All discharge instructions reviewed with patient and/or family. Voiced understanding. Scripts Sulfamethoxazole/Trimethoprim (Bactrim Ds Tablet) 1 Each Tablet 1 EACH PO BID for 7 Days, #14 TAB 0 Refills Prov: PIERO CLANCY 05/24/21 PIERO CLANCY May 24, 2021 22:01
[2021-05-24] MEDS ORDERED: SULF1TAB38 PO (22:21)
== END 2021-05-24 22:36 | disposition home or self-care (01) ==
LOC: EDUNIT# 21:21 → ER 21:23
DX: L73.9 Follicular disorder, unspecified (principal); L02.411 Cutaneous abscess of right axilla
CPT/HCPCS: 99283